=== PATIENT | male | born 1960 | race African-American/Black ===

== ENCOUNTER 2016-10-21 20:16 | Inpatient (IN) | payer MEDICARE, OTHER ==
[~2016-10-21] VITALS: Ht 154.9 cm; Wt 48.7 kg
[~2016-10-21 20:16] MED LIST: ALBU0.63 NEB; BUSP15TA PO; CRESTOR20 MG PO; ESCI10TA PO; FLUT1DIS3 IH; FOLI1TAB16 PO; GUAI473L15 PO; HALO5TAB PO; LANS30CA PO; METF850T2 PO; MULT1TAB52 PO; OLAN10TA9 PO; SUCR1TAB29 PO; TIOT18CA IH; VENTOLIN HFA18 GM INH
[2016-10-21] MEDS ORDERED: methylPREDNISolone SOD SUCC PF 125 MG/2 ML VIAL. IV ONE (20:45)
[2016-10-21] MEDS ORDERED: IPRATRPIUM/ALBUTEROL 0.5/2.5MG 3 ML NEBU. NEB ONE (20:45)
[2016-10-21 21:11] LABS: BASO # 0.1 x10^3/uL (0.0-0.2); BASO % 0 % (0-3); EOS % 0 % (0-3); HEMOGLOBIN 11.3 g/dL (13.0-17.5); LYMPH # 1.4 x10^3/uL (1.0-4.8); LYMPH % 8 % (24-48); MEAN CORPUSCULAR HEMOGLOBIN 29 pg (25-35); MEAN CORPUSCULAR HGB CONC 33 g/dL (31-37); MEAN CORPUSCULAR VOLUME 87 fL (79-100); MONO % 6 % (0-9); NEUT % 86 % (31-73); PLATELET COUNT 707 x10^3/uL (140-400); RED CELL DISTRIBUTION WIDTH 15.2 % (11.5-14.5); WHITE BLOOD COUNT 18.6 x10^3/uL (4.0-11.0)
[2016-10-21 21:12] LABS: CALCIUM 8.9 mg/dL (8.5-10.1); CREATININE 1.2 mg/dL (0.7-1.3); GFR 76.1; POTASSIUM 3.4 mmol/L (3.5-5.1)
[2016-10-21 21:18] LABS: ALBUMIN 2.4 g/dL (3.4-5.0); ALBUMIN/GLOBULIN RATIO 0.4 (1.0-1.7); TOTAL BILIRUBIN 0.7 mg/dL (0.2-1.0); TOTAL PROTEIN 8.2 g/dL (6.4-8.2)
[2016-10-21 21:19] LABS: OBC FLU VALID
[2016-10-21 21:36] LABS: PLT ESTIMATE INCREASED (ADEQUATE); TOXIC GRANULATION SLIGHT; TOXIC VACUOLATION SLIGHT
[2016-10-21] MEDS ORDERED: LEVOFLOXACIN PER PHARMACY MC PRN (21:45)
[2016-10-21] MEDS ORDERED: ONDANSETRON PF 4 MG/2 ML VIAL. IV PRN (22:00)
[2016-10-21] MEDS ORDERED: ACETAMINOPHEN 325 MG TABLET. PO PRN (22:00)
--- NOTE | 2016-10-21 22:04 | PHYS DOC ---
Past Medical History Past Medical History: Anemia, Anxiety, Depression, Diabetes-Type II, GERD, High Cholesterol, Hypothyroid, Other Additional Past Medical Histor: PSYCHOSIS Past Surgical History: No Surgical History Alcohol Use: None Drug Use: None Adult General Chief Complaint Chief Complaint: FLU SYMPTOM HPI HPI 56-year-old male with multiple medical problems including some psychiatric illnesses resents with 2-3 day history of coughing and congestion. He states over the last 2-3 days he is just not felt well. He states he's felt short of breath. He has not had any chest pain. He denies any hemoptysis. He states he has not been eating much recently. [] Review of Systems Review of Systems Constitutional: Denies fever or chills [] Eyes: Denies change in visual acuity, redness, or eye pain [] HENT: Denies nasal congestion or sore throat [] Respiratory: Per history of present illness [] Cardiovascular: No additional information not addressed in HPI [] GI: Denies abdominal pain, nausea, vomiting, bloody stools or diarrhea [] : Denies dysuria or hematuria [] Musculoskeletal: Denies back pain or joint pain [] Integument: Denies rash or skin lesions [] Neurologic: Denies headache, focal weakness or sensory changes [] Endocrine: Denies polyuria or polydipsia [] Current Medications Current Medications Current Medications Medications (Trade) Dose Ordered Sig/Dee Start Time Stop Time Status Last Admin Dose Admin Acetaminophen (Tylenol) 650 mg PRN Q4HRS PRN 10/21/16 22:00 10/22/16 21:59 Albuterol/ Ipratropium (Duoneb) 6 ml 1X ONCE 10/21/16 20:45 10/21/16 20:46 DC 10/21/16 21:04 6 ML Albuterol/ Ipratropium 3 ml 3 ml RTQID 10/22/16 08:00 10/23/16 07:59 Levofloxacin/ Dextrose (LEVAQUIN 750mg PREMIX) 150 ml @ 100 mls/hr 1X ONCE 10/21/16 22:00 10/21/16 23:29 Levofloxacin/ Dextrose (Levaquin Per Pharmacy) 1 each PRN DAILY PRN 10/21/16 21:45 UNV Methylprednisolone Sodium Succinate (Solu-Medrol 125mg Vial) 125 mg 1X ONCE 10/21/16 20:45 10/21/16 20:46 DC 10/21/16 20:58 125 MG Ondansetron HCl 4 mg 4 mg PRN Q8HRS PRN 10/21/16 22:00 10/22/16 21:59 Sodium Chloride (Iv Sodium Chloride 0.9% 1000ml Bag) 1,000 ml @ 150 mls/hr Q6H40M 10/21/16 22:00 10/22/16 21:59 Allergies Allergies Allergies Coded Allergies Type Severity Reaction Last Updated Verified No Known Drug Allergies 05/09/14 No Physical Exam Physical Exam Constitutional: Well developed, well nourished, no acute distress, non-toxic appearance. [] HENT: Normocephalic, atraumatic, bilateral external ears normal, oropharynx moist, no oral exudates, nose normal. [] Eyes: PERRLA, EOMI, conjunctiva normal, no discharge. [] Neck: Normal range of motion, no tenderness, supple, no stridor. [] Cardiovascular:Heart rate regular rhythm, no murmur [] Lungs & Thorax: Diffuse wheezing throughout both lungs no rales [] Abdomen: Bowel sounds normal, soft, no tenderness, no masses, no pulsatile masses. [] Skin: Warm, dry, no erythema, no rash. [] Back: No tenderness, no CVA tenderness. [] Extremities: No tenderness, no cyanosis, no clubbing, ROM intact, no edema. [] Neurologic: Alert and oriented X 3, normal motor function, normal sensory function, no focal deficits noted. [] Psychologic: Very unusual affect. [] Current Patient Data Vital Signs Vital Signs Date Time Temp Pulse Resp B/P Pulse Ox O2 Delivery O2 Flow Rate FiO2 10/21/16 21:16 105 20 117/66 98 Nasal Cannula 2 10/21/16 20:30 98.8 98.8 Lab Values Laboratory Tests Test 10/21/16 20:45 White Blood Count 18.6x10^3/uL (4.0-11.0) H Red Blood Count 3.90x10^6/uL (4.30-5.70) L Hemoglobin 11.3g/dL (13.0-17.5) L Hematocrit 34.0% (39.0-53.0) L Mean Corpuscular Volume 87fL (79-100) Mean Corpuscular Hemoglobin 29pg (25-35) Mean Corpuscular Hemoglobin Concent 33g/dL (31-37) Red Cell Distribution Width 15.2% (11.5-14.5) H Platelet Count 707x10^3/uL (140-400) H Neutrophils (%) (Auto) 86% (31-73) H Lymphocytes (%) (Auto) 8% (24-48) L Monocytes (%) (Auto) 6% (0-9) Eosinophils (%) (Auto) 0% (0-3) Basophils (%) (Auto) 0% (0-3) Neutrophils # (Auto) 16.1x10^3uL (1.8-7.7) H Lymphocytes # (Auto) 1.4x10^3/uL (1.0-4.8) Monocytes # (Auto) 1.1x10^3/uL (0.0-1.1) Eosinophils # (Auto) 0.0x10^3/uL (0.0-0.7) Basophils # (Auto) 0.1x10^3/uL (0.0-0.2) Segmented Neutrophils % 87% (35-66) H Band Neutrophils % 2% (0-9) Lymphocytes % 7% (24-48) L Monocytes % 4% (0-10) Toxic Granulation Slight Toxic Vacuolation Slight Platelet Estimate Increased (ADEQUATE) Sodium Level 135mmol/L (136-145) L Potassium Level 3.4mmol/L (3.5-5.1) L Chloride Level 97mmol/L (98-107) L Carbon Dioxide Level 28mmol/L (21-32) Anion Gap 10 (6-14) Blood Urea Nitrogen 15mg/dL (8-26) Creatinine 1.2mg/dL (0.7-1.3) Estimated GFR (Cockcroft-Gault) 76.1 BUN/Creatinine Ratio 13 (6-20) Glucose Level 120mg/dL (70-99) H Calcium Level 8.9mg/dL (8.5-10.1) Total Bilirubin 0.7mg/dL (0.2-1.0) Aspartate Amino Transferase (AST) 35U/L (15-37) Alanine Aminotransferase (ALT) 46U/L (16-63) Alkaline Phosphatase 264U/L (46-116) H Troponin I Quantitative < 0.017ng/mL (0.000-0.055) FY-Lyy-Z-Type Natriuretic Peptide 120pg/mL (0-124) Total Protein 8.2g/dL (6.4-8.2) Albumin 2.4g/dL (3.4-5.0) L Albumin/Globulin Ratio 0.4 (1.0-1.7) L Influenza Type A Antigen Negative (NEGATIVE) Influenza Type B Antigen Negative (NEGATIVE) Laboratory Tests 10/21/16 20:45 Laboratory Tests 10/21/16 20:45 EKG EKG [EKG: Normal sinus rhythm rate of [address]-T changes] Radiology/Procedures Radiology/Procedures [] Impressions: Chest x-ray: Scattered infiltrates throughout both lungs Course & Med Decision Making Course & Med Decision Making Pertinent Labs and Imaging studies reviewed. (See chart for details) [ED course: Evaluation reveals a 56-year-old male who appears older than his stated age with scattered wheezes throughout both lungs. His chest x-ray is not completely normal and potentially represent pneumonia. Patient was given IV Levaquin. He was given 2 DuoNeb nebs and 125 Solu-Medrol IV during his stay in the department which did help alleviate his symptoms. Patient was satting 95% on 2 L nasal cannula. I spoke with Dr. Shelly Samuel who agreed to accept patient for admission.] Dragon Disclaimer Dragon Disclaimer This electronic medical record was generated, in whole or in part, using a voice recognition dictation system. Departure Departure Impression: Primary Impression: COPD exacerbation Disposition: 09 ADMITTED INPATIENT Admitting Physician: Pam Wilde Condition: STABLE Referrals: Elliot CALLOWAY MD (PCP) YADIRA BROWNING DO Oct 21, 2016 22:04
[2016-10-21 22:50] VITALS: BP 132/78
[2016-10-21 22:51] VITALS: BP 132/78
[2016-10-21] MEDS: IV NORMAL SALINE 1000ML BAG 1,000 ML IV SCH (23:02)
[2016-10-22] MEDS ORDERED: INFLUENZA VAX SCREEN BY RX. MC PRN (00:45)
[2016-10-22] MEDS ORDERED: METH5TAB6 PO (00:50)
[2016-10-22] MEDS ORDERED: EZET10TA3 PO (00:50)
[2016-10-22] MEDS: IV NORMAL SALINE 1000ML BAG 1,000 ML IV SCH ×3 (04:40→16:40)
--- NOTE | 2016-10-22 06:12 | EKG ---
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
[2016-10-22 07:00] VITALS: BP 110/69
--- NOTE | 2016-10-22 07:25 | RAD ---
Indication shortness of breath. A single view of the chest was obtained and is compared to an exam 11/23/2007. Relative to the previous exam there is interstitial prominence in the lungs. It is uncertain whether this is chronic in nature reflecting fibrotic changes or is outside sales account representative of an infectious process such as interstitial pneumonitis or mild interstitial edema. A focal consolidated pneumonia is not seen. Heart size is normal. There is no pleural fluid or pneumothorax. IMPRESSION: Mild diffuse interstitial prominence relative to the previous exam. See above discussion. No focal consolidated pneumonia seen
[2016-10-22] MEDS ORDERED: IPRATRPIUM/ALBUTEROL 0.5/2.5MG 3 ML NEBU. NEB SCH (08:00)
[2016-10-22] MEDS ORDERED: ALBUTEROL SULFATE 2.5 MG/3 ML NEBU. NEB PRN (08:15)
[2016-10-22] MEDS: busPIRone 5 MG TABLET. PO SCH ×3 (08:46→20:26)
[2016-10-22] MEDS: OLANZAPINE 5 MG TABLET. PO SCH (08:46)
[2016-10-22] MEDS: FOLIC ACID 1 MG TABLET PO SCH (08:47)
[2016-10-22] MEDS: EZETIMIBE 10 MG TABLET PO SCH (08:47)
[2016-10-22] MEDS: PANTOPRAZOLE 40 MG TABLET. PO SCH (08:47)
[2016-10-22] MEDS: HALOPERIDOL 5 MG TABLET PO SCH ×3 (08:47→20:26)
[2016-10-22] MEDS: ESCITALOPRAM 10 MG TABLET. PO SCH (08:47)
[2016-10-22] MEDS: METHIMAZOLE 10 MG TABLET PO SCH (08:50)
[2016-10-22] MEDS ORDERED: NON FORMULARY ITEM (Tiotropium Bromide (Spiriva) 2 INH) IH SCH (09:00)
[2016-10-22] MEDS ORDERED: PREDNISONE 20 MG TABLET PO SCH (09:00)
[2016-10-22] MEDS ORDERED: FLU VACC QUAD 2016-17 (36MOS+)/PF 0.5 ML SYRINGE. VAX IM ONE (09:00)
[2016-10-22] MEDS: SUCRALFATE 1 GM TABLET. PO SCH ×3 (10:51→20:26)
[2016-10-22 11:00] VITALS: BP 123/70
[2016-10-22] MEDS: IPRATRPIUM/ALBUTEROL 0.5/2.5MG 3 ML NEBU. NEB SCH ×3 (11:27→20:13)
[2016-10-22 15:00] VITALS: BP 111/62
--- NOTE | 2016-10-22 15:57 | PDOC1 ---
History and Physical Date of Admission Date of Admission DATE: 10/21/16 Identification/Chief Complaint Chief Complaint Difficulties breathing Source Source: Patient History of Present Illness History of Present Illness Pt says that he has been ill for the past week or so with productive cough with green sputum. He has had increased difficulty breathing and wheezing. Past Medical History Cardiovascular: HTN, Hyperlipidemia Pulmonary: Asthma, COPD GI: GERD Heme/Onc: No pertinent hx Hepatobiliary: Other (Elevated Liver enzymes 2/2 Etoh use) Psych: Depression, Schizophrenia Rheumatologic: No pertinent hx Infectious disease: No pertinent hx ENT: No pertinent hx Renal/: No pertinent hx Endocrine: Diabetes, Hyperthyroidism Dermatology: No pertinent hx Past Surgical History Past Surgical History: No pertinent history Family History Family History: Diabetes Social History Smoke: 1 pack per day ALCOHOL: occassional Drugs: None Current Problem List Problem List Problems Medical Problems: (1) COPD exacerbation Status: Acute Problems: Current Medications Current Medications Current Medications Albuterol/ Ipratropium (Duoneb) 6 ml 1X ONCE NEB Last administered on 21:04; Start 10/21/16 at 20:45; Stop 10/21/16 at 20:46; Status DC Methylprednisolone Sodium Succinate (Solu-Medrol 125mg Vial) 125 mg 1X ONCE IV Last administered on 10/21/16 20:58; Start 10/21/16 at 20:45; Stop 10/21/16 at 20:46; Status DC Levofloxacin/ Dextrose (Levaquin Per Pharmacy) 1 each PRN DAILY PRN MC SEE COMMENTS; Start 10/21/16 at 21:45 Ondansetron HCl 4 mg 4 mg PRN Q8HRS PRN IV NAUSEA/VOMITING; Start 10/21/16 at 22:00; Stop 10/22/16 at 21:59 Sodium Chloride (Iv Sodium Chloride 0.9% 1000ml Bag) 1,000 ml @ 150 mls/hr Q6H40M IV Last administered on 10/22/16 04:40; Start 10/21/16 at 22:00; Stop at 21:59 Acetaminophen (Tylenol) 650 mg PRN Q4HRS PRN PO FEVER; Start 10/21/16 at 22:00 ; Stop 10/22/16 at 21:59 Albuterol/ Ipratropium 3 ml 3 ml RTQID NEB Last administered on 10/22/16 07:38 ; Start 10/22/16 at 08:00; Stop 10/22/16 at 08:22; Status DC Levofloxacin/ Dextrose 150 ml @ 100 mls/hr 1X ONCE IV ; Start 10/21/16 at 22: 00; Stop 10/21/16 at 23:29; Status Cancel Levofloxacin/ Dextrose 100 ml @ 100 mls/hr 1X ONCE IV Last administered on 22:21; Start 10/21/16 at 22:30; Stop 10/21/16 at 23:29; Status DC Levofloxacin/ Dextrose (LEVAQUIN 250mg PREMIX) 50 ml @ 50 mls/hr Q24H IV ; Start 10/22/16 at 21:00 Influenza Virus Vaccine Quadrival (Fluarix Quad [id number] Syringe) 0.5 ml ONCE ONCE VAX IM Last administered on 10/22/16 08:52; Start 10/22/16 at 09:00; Stop 10/22/16 at 09:01; Status DC Info (Do NOT chart on this placeholder) 1 each PRN 1X PRN MC SEE COMMENTS; Start 10/22/16 at 00:45; Status Cancel Prednisone (Prednisone) 50 mg DAILY PO Last administered on 10/22/16 08:46; Start 10/22/16 at 09:00 Escitalopram Oxalate (Lexapro) 10 mg DAILY PO Last administered on 10/22/16 08: 47; Start 10/22/16 at 09:00 EZETIMIBE (Zetia) 10 mg DAILY PO Last administered on 10/22/16 08:47; Start 10/22/16 at 09:00 Folic Acid (Folic Acid) 1 mg DAILY PO Last administered on 10/22/16 08:47; Start 10/22/16 at 09:00 Haloperidol (Haldol) 5 mg TID PO Last administered on 10/22/16 13:35; Start 10/22/16 at 09:00 Sucralfate (Carafate) 1 gm QIDACHS PO Last administered on 10/22/16 10:51; Start 10/22/16 at 11:30 Non-Formulary Medication 2 inh DAILY IH ; Start 10/22/16 at 09:00; Status UNV Albuterol Sulfate (Ventolin Neb Soln) 2.5 mg PRN Q4HRS PRN NEB SHORTNESS OF BREATH; Start 10/22/16 at 08:15 Buspirone HCl (Buspar) 15 mg TID PO Last administered on 10/22/16 13:35; Start 10/22/16 at 09:00 Pantoprazole Sodium (Protonix) 40 mg DAILYAC PO Last administered on 10/22/16 08:47; Start 10/22/16 at 09:00 Methimazole (Tapazole) 5 mg DAILY PO Last administered on 10/22/16 08:50; Start 10/22/16 at 09:00 Olanzapine (Zyprexa) 15 mg DAILY PO Last administered on 10/22/16 08:46; Start 10/22/16 at 09:00 Atorvastatin Calcium (Lipitor) 10 mg QHS PO ; Start 10/22/16 at 21:00 Albuterol/ Ipratropium (Duoneb) 3 ml RTQID NEB Last administered on 10/22/16 14 :55; Start 10/22/16 at 12:00 Active Scripts Active Reported Methimazole 5 Mg Tablet 5 Mg PO Zetia (Ezetimibe) 10 Mg Tablet 1 Tab PO DAILY Albuterol Sulfate Neb Soln (Albuterol Sulfate) 0.63 Mg/3 Ml Vial.neb 0.083 Mg NEB Ventolin Hfa Inhaler (Albuterol Sulfate) 18 Gm Hfa.aer.ad 2 Puff INH QID Guaifenesin Ac Cough Syrup (Guaifenesin/Codeine Phosphate) 473 Ml Liquid 5 Ml PO PRN Q6HRS PRN Carafate (Sucralfate) 1 Gm Tablet 1 Gm PO QIDACHS Spiriva (Tiotropium [place]) 18 Mcg Cap.w.dev 2 Inh IH DAILY Olanzapine 10 Mg Tablet 15 Mg PO DAILY Multivitamins (Multivitamin) 1 Each Tablet 1 Each PO DAILY Metformin Hcl 850 Mg Tablet 850 Mg PO BID Lansoprazole 30 Mg Capsule.dr 30 Mg PO BID Haloperidol 5 Mg Tablet 5 Mg PO TID Folic Acid 1 Mg Tablet 1 Mg PO DAILY Escitalopram Oxalate 10 Mg Tablet 10 Mg PO DAILY Crestor (Rosuvastatin Calcium) 20 Mg Tablet 20 Mg PO HS Buspirone Hcl 15 Mg Tablet 15 Mg PO TID Advair 250-50 Diskus (Fluticasone/Salmeterol) 1 Each Disk.w.dev 1 Inh IH BID Allergies Allergies: Coded Allergies: No Known Drug Allergies (Unverified , 05/09/14) ROS General: No: Chills, Night Sweats PSYCHOLOGICAL ROS: No: Anxiety, Depression Eyes: No Decreased vision, No Eye Pain HEENT: No: Nasal congestion, Sore Throat ALLERGY AND IMMUNOLOGY: YES: Post Nasal Drip, No: Hives Hematological and Lymphatic: No: Bleeding Problems, Blood Clots Respiratory: YES: Cough, Shortness of breath, Sputum Changes, Wheezing Cardiovascular: No Chest Pain, No Edema, No Palpitations Gastrointestinal: No Abdominal Pain, No Constipation, No Diarrhea, No Nausea, No Vomiting Genitourinary: No Dysuria, No Urgency Musculoskeletal: No Joint Pain, No Muscle Pain Neurological: No Behavorial Changes, No Numbness/Tingling Skin: No Rash, No Skin Lesion Changes Physical Exam General: Alert, Oriented X3, Cooperative, No acute distress HEENT: Atraumatic, PERRLA, EOMI, Mucous membr. moist/pink Lungs: Normal air movement, Other (end expiratory wheezes throughout) Heart: RRR, no rubs, no gallops, no murmurs Abdomen: Normal bowel sounds, Soft, No tenderness, No hepatosplenomegaly Extremities: No clubbing, No cyanosis, No edema Skin: No rashes, No significant lesion Neuro: Normal speech, Cranial nerves 3-12 NL Psych/Mental Status: Mental status NL, Mood NL Vitals Vitals Vital Signs Date Time Temp Pulse Resp B/P Pulse Ox O2 Delivery O2 Flow Rate FiO2 10/22/16 15:00 97.6 105 19 111/62 98 Room Air 97.6 10/22/16 07:00 2.0 Labs Labs Laboratory Tests Test 10/21/16 20:45 10/22/16 03:38 10/22/16 07:38 10/22/16 08:55 White Blood Count 18.6x10^3/uL (4.0-11.0) Red Blood Count 3.90x10^6/uL (4.30-5.70) Hemoglobin 11.3g/dL (13.0-17.5) Hematocrit 34.0% (39.0-53.0) Mean Corpuscular Volume 87fL (79-100) Mean Corpuscular Hemoglobin 29pg (25-35) Mean Corpuscular Hemoglobin Concent 33g/dL (31-37) Red Cell Distribution Width 15.2% (11.5-14.5) Platelet Count 707x10^3/uL (140-400) Neutrophils (%) (Auto) 86% (31-73) Lymphocytes (%) (Auto) 8% (24-48) Monocytes (%) (Auto) 6% (0-9) Eosinophils (%) (Auto) 0% (0-3) Basophils (%) (Auto) 0% (0-3) Neutrophils # (Auto) 16.1x10^3uL (1.8-7.7) Lymphocytes # (Auto) 1.4x10^3/uL (1.0-4.8) Monocytes # (Auto) 1.1x10^3/uL (0.0-1.1) Eosinophils # (Auto) 0.0x10^3/uL (0.0-0.7) Basophils # (Auto) 0.1x10^3/uL (0.0-0.2) Segmented Neutrophils % 87% (35-66) Band Neutrophils % 2% (0-9) Lymphocytes % 7% (24-48) Monocytes % 4% (0-10) Toxic Granulation Slight Toxic Vacuolation Slight Platelet Estimate Increased (ADEQUATE) Sodium Level 135mmol/L (136-145) Potassium Level 3.4mmol/L (3.5-5.1) Chloride Level 97mmol/L (98-107) Carbon Dioxide Level 28mmol/L (21-32) Anion Gap 10 (6-14) Blood Urea Nitrogen 15mg/dL (8-26) Creatinine 1.2mg/dL (0.7-1.3) Estimated GFR (Cockcroft-Gault) 76.1 BUN/Creatinine Ratio 13 (6-20) Glucose Level 120mg/dL (70-99) Calcium Level 8.9mg/dL (8.5-10.1) Total Bilirubin 0.7mg/dL (0.2-1.0) Aspartate Amino Transf (AST/SGOT) 35U/L (15-37) Alanine Aminotransferase (ALT/SGPT) 46U/L (16-63) Alkaline Phosphatase 264U/L (46-116) Troponin I Quantitative < 0.017ng/mL (0.000-0.055) < 0.017ng/mL (0.000-0.055) < 0.017ng/mL (0.000-0.055) QW-Uyh-N-Type Natriuretic Peptide 120pg/mL (0-124) Total Protein 8.2g/dL (6.4-8.2) Albumin 2.4g/dL (3.4-5.0) Albumin/Globulin Ratio 0.4 (1.0-1.7) Influenza Type A Antigen Negative (NEGATIVE) Influenza Type B Antigen Negative (NEGATIVE) Glucose (Fingerstick) 141mg/dL (70-99) Laboratory Tests Test 10/21/16 20:45 10/22/16 03:38 10/22/16 07:38 10/22/16 08:55 White Blood Count 18.6x10^3/uL (4.0-11.0) Red Blood Count 3.90x10^6/uL (4.30-5.70) Hemoglobin 11.3g/dL (13.0-17.5) Hematocrit 34.0% (39.0-53.0) Mean Corpuscular Volume 87fL (79-100) Mean Corpuscular Hemoglobin 29pg (25-35) Mean Corpuscular Hemoglobin Concent 33g/dL (31-37) Red Cell Distribution Width 15.2% (11.5-14.5) Platelet Count 707x10^3/uL (140-400) Neutrophils (%) (Auto) 86% (31-73) Lymphocytes (%) (Auto) 8% (24-48) Monocytes (%) (Auto) 6% (0-9) Eosinophils (%) (Auto) 0% (0-3) Basophils (%) (Auto) 0% (0-3) Neutrophils # (Auto) 16.1x10^3uL (1.8-7.7) Lymphocytes # (Auto) 1.4x10^3/uL (1.0-4.8) Monocytes # (Auto) 1.1x10^3/uL (0.0-1.1) Eosinophils # (Auto) 0.0x10^3/uL (0.0-0.7) Basophils # (Auto) 0.1x10^3/uL (0.0-0.2) Segmented Neutrophils % 87% (35-66) Band Neutrophils % 2% (0-9) Lymphocytes % 7% (24-48) Monocytes % 4% (0-10) Toxic Granulation Slight Toxic Vacuolation Slight Platelet Estimate Increased (ADEQUATE) Sodium Level 135mmol/L (136-145) Potassium Level 3.4mmol/L (3.5-5.1) Chloride Level 97mmol/L (98-107) Carbon Dioxide Level 28mmol/L (21-32) Anion Gap 10 (6-14) Blood Urea Nitrogen 15mg/dL (8-26) Creatinine 1.2mg/dL (0.7-1.3) Estimated GFR (Cockcroft-Gault) 76.1 BUN/Creatinine Ratio 13 (6-20) Glucose Level 120mg/dL (70-99) Calcium Level 8.9mg/dL (8.5-10.1) Total Bilirubin 0.7mg/dL (0.2-1.0) Aspartate Amino Transf (AST/SGOT) 35U/L (15-37) Alanine Aminotransferase (ALT/SGPT) 46U/L (16-63) Alkaline Phosphatase 264U/L (46-116) Troponin I Quantitative < 0.017ng/mL (0.000-0.055) < 0.017ng/mL (0.000-0.055) < 0.017ng/mL (0.000-0.055) OK-Ynd-E-Type Natriuretic Peptide 120pg/mL (0-124) Total Protein 8.2g/dL (6.4-8.2) Albumin 2.4g/dL (3.4-5.0) Albumin/Globulin Ratio 0.4 (1.0-1.7) Influenza Type A Antigen Negative (NEGATIVE) Influenza Type B Antigen Negative (NEGATIVE) Glucose (Fingerstick) 141mg/dL (70-99) VTE Prophylaxis Ordered VTE Prophylaxis Devices: Yes VTE Pharmacological Prophylaxi: No Assessment/Plan Assessment/Plan Pt is a 56yo AAM admitted for COPD exacerbation 1)COPD Exacerbation- pt started on Prednisone and Levaquin. Pt's WBC elevated at 18.6. 2)Hx of DM2- pt is not on any diabetes medications. Fasting BS this morning was 120. HbA1C pending 3)Depression/Schizophrenia- pt continued on Escitalopram 10mg, Haldol 5mg TID, Olanzapine 15mg qday and Buspirone 15mg TID 4)Hyperthyroidism- TSH pending. Pt continued on Methimazole 5mg 5)Hx Hudson's - pt transitioned to Pantoprazole 40mg and continued on Sucralfate 1g 6)HLD- pt transitioned to Atorvastatin 10mg and continued on Zetia 7)Anemia- mild. No active bleeding. CTM 8)Hyponatremia- mild. CTM 9)PEM- severe JOEL HOLLIS MD Oct 22, 2016 15:56
--- NOTE | 2016-10-22 16:19 | PDOC ---
PULMONARY PROGRESS NOTES Vitals Vital Signs Date Time Temp Pulse Resp B/P Pulse Ox O2 Delivery O2 Flow Rate FiO2 10/22/16 15:00 97.6 105 19 111/62 98 Room Air 97.6 10/22/16 07:00 2.0 Labs Laboratory Tests Test 10/21/16 20:45 10/22/16 03:38 10/22/16 07:38 10/22/16 08:55 White Blood Count 18.6x10^3/uL (4.0-11.0) Red Blood Count 3.90x10^6/uL (4.30-5.70) Hemoglobin 11.3g/dL (13.0-17.5) Hematocrit 34.0% (39.0-53.0) Mean Corpuscular Volume 87fL (79-100) Mean Corpuscular Hemoglobin 29pg (25-35) Mean Corpuscular Hemoglobin Concent 33g/dL (31-37) Red Cell Distribution Width 15.2% (11.5-14.5) Platelet Count 707x10^3/uL (140-400) Neutrophils (%) (Auto) 86% (31-73) Lymphocytes (%) (Auto) 8% (24-48) Monocytes (%) (Auto) 6% (0-9) Eosinophils (%) (Auto) 0% (0-3) Basophils (%) (Auto) 0% (0-3) Neutrophils # (Auto) 16.1x10^3uL (1.8-7.7) Lymphocytes # (Auto) 1.4x10^3/uL (1.0-4.8) Monocytes # (Auto) 1.1x10^3/uL (0.0-1.1) Eosinophils # (Auto) 0.0x10^3/uL (0.0-0.7) Basophils # (Auto) 0.1x10^3/uL (0.0-0.2) Segmented Neutrophils % 87% (35-66) Band Neutrophils % 2% (0-9) Lymphocytes % 7% (24-48) Monocytes % 4% (0-10) Toxic Granulation Slight Toxic Vacuolation Slight Platelet Estimate Increased (ADEQUATE) Sodium Level 135mmol/L (136-145) Potassium Level 3.4mmol/L (3.5-5.1) Chloride Level 97mmol/L (98-107) Carbon Dioxide Level 28mmol/L (21-32) Anion Gap 10 (6-14) Blood Urea Nitrogen 15mg/dL (8-26) Creatinine 1.2mg/dL (0.7-1.3) Estimated GFR (Cockcroft-Gault) 76.1 BUN/Creatinine Ratio 13 (6-20) Glucose Level 120mg/dL (70-99) Calcium Level 8.9mg/dL (8.5-10.1) Total Bilirubin 0.7mg/dL (0.2-1.0) Aspartate Amino Transf (AST/SGOT) 35U/L (15-37) Alanine Aminotransferase (ALT/SGPT) 46U/L (16-63) Alkaline Phosphatase 264U/L (46-116) Troponin I Quantitative < 0.017ng/mL (0.000-0.055) < 0.017ng/mL (0.000-0.055) < 0.017ng/mL (0.000-0.055) HS-Qqf-F-Type Natriuretic Peptide 120pg/mL (0-124) Total Protein 8.2g/dL (6.4-8.2) Albumin 2.4g/dL (3.4-5.0) Albumin/Globulin Ratio 0.4 (1.0-1.7) Influenza Type A Antigen Negative (NEGATIVE) Influenza Type B Antigen Negative (NEGATIVE) Glucose (Fingerstick) 141mg/dL (70-99) Laboratory Tests Test 10/21/16 20:45 10/22/16 03:38 10/22/16 07:38 10/22/16 08:55 White Blood Count 18.6x10^3/uL (4.0-11.0) Red Blood Count 3.90x10^6/uL (4.30-5.70) Hemoglobin 11.3g/dL (13.0-17.5) Hematocrit 34.0% (39.0-53.0) Mean Corpuscular Volume 87fL (79-100) Mean Corpuscular Hemoglobin 29pg (25-35) Mean Corpuscular Hemoglobin Concent 33g/dL (31-37) Red Cell Distribution Width 15.2% (11.5-14.5) Platelet Count 707x10^3/uL (140-400) Neutrophils (%) (Auto) 86% (31-73) Lymphocytes (%) (Auto) 8% (24-48) Monocytes (%) (Auto) 6% (0-9) Eosinophils (%) (Auto) 0% (0-3) Basophils (%) (Auto) 0% (0-3) Neutrophils # (Auto) 16.1x10^3uL (1.8-7.7) Lymphocytes # (Auto) 1.4x10^3/uL (1.0-4.8) Monocytes # (Auto) 1.1x10^3/uL (0.0-1.1) Eosinophils # (Auto) 0.0x10^3/uL (0.0-0.7) Basophils # (Auto) 0.1x10^3/uL (0.0-0.2) Segmented Neutrophils % 87% (35-66) Band Neutrophils % 2% (0-9) Lymphocytes % 7% (24-48) Monocytes % 4% (0-10) Toxic Granulation Slight Toxic Vacuolation Slight Platelet Estimate Increased (ADEQUATE) Sodium Level 135mmol/L (136-145) Potassium Level 3.4mmol/L (3.5-5.1) Chloride Level 97mmol/L (98-107) Carbon Dioxide Level 28mmol/L (21-32) Anion Gap 10 (6-14) Blood Urea Nitrogen 15mg/dL (8-26) Creatinine 1.2mg/dL (0.7-1.3) Estimated GFR (Cockcroft-Gault) 76.1 BUN/Creatinine Ratio 13 (6-20) Glucose Level 120mg/dL (70-99) Calcium Level 8.9mg/dL (8.5-10.1) Total Bilirubin 0.7mg/dL (0.2-1.0) Aspartate Amino Transf (AST/SGOT) 35U/L (15-37) Alanine Aminotransferase (ALT/SGPT) 46U/L (16-63) Alkaline Phosphatase 264U/L (46-116) Troponin I Quantitative < 0.017ng/mL (0.000-0.055) < 0.017ng/mL (0.000-0.055) < 0.017ng/mL (0.000-0.055) GQ-Vzl-N-Type Natriuretic Peptide 120pg/mL (0-124) Total Protein 8.2g/dL (6.4-8.2) Albumin 2.4g/dL (3.4-5.0) Albumin/Globulin Ratio 0.4 (1.0-1.7) Influenza Type A Antigen Negative (NEGATIVE) Influenza Type B Antigen Negative (NEGATIVE) Glucose (Fingerstick) 141mg/dL (70-99) Medications Active Scripts Medications Dose Route/Sig Days Date Category Methimazole 5 Mg Tablet 5 Mg PO 10/22/16 Reported Zetia (Ezetimibe) 10 Mg Tablet 1 Tab PO DAILY 10/22/16 Reported Albuterol Sulfate Neb Soln (Albuterol Sulfate) 0.63 Mg/3 Ml Vial.neb 0.083 Mg NEB 05/09/14 Reported Ventolin Hfa Inhaler (Albuterol Sulfate) 18 Gm Hfa.aer.ad 2 Puff INH QID 05/09/14 Reported Guaifenesin Ac Cough Syrup (Guaifenesin/Codeine Phosphate) 473 Ml Liquid 5 Ml PO PRN Q6HRS PRN 05/09/14 Reported Carafate (Sucralfate) 1 Gm Tablet 1 Gm PO QIDACHS 05/09/14 Reported Spiriva (Tiotropium [place]) 18 Mcg Cap.w.dev 2 Inh IH DAILY 05/09/14 Reported Olanzapine 10 Mg Tablet 15 Mg PO DAILY 05/09/14 Reported Multivitamins (Multivitamin) 1 Each Tablet 1 Each PO DAILY 05/09/14 Reported Metformin Hcl 850 Mg Tablet 850 Mg PO BID 05/09/14 Reported Lansoprazole 30 Mg Capsule.dr 30 Mg PO BID 05/09/14 Reported Haloperidol 5 Mg Tablet 5 Mg PO TID 05/09/14 Reported Folic Acid 1 Mg Tablet 1 Mg PO DAILY 05/09/14 Reported Escitalopram Oxalate 10 Mg Tablet 10 Mg PO DAILY 05/09/14 Reported Crestor (Rosuvastatin Calcium) 20 Mg Tablet 20 Mg PO HS 05/09/14 Reported Buspirone Hcl 15 Mg Tablet 15 Mg PO TID 05/09/14 Reported Advair 250-50 Diskus (Fluticasone/Salmeterol) 1 Each Disk.w.dev 1 Inh IH BID 05/09/14 Reported Impression . FULL NOTE DICTATED SEE ORDERS AGREE WITH CURRENT RX FOR AECOPD POSSIBLE VIRAL PNEUMONIA VS ATYPICAL PNEUMONIA (MYCOPLASMA) CATARINO PAYNE MD Oct 22, 2016 16:19
[2016-10-22 19:00] VITALS: BP 108/62
[2016-10-22] MEDS: ATORVASTATIN CALCIUM 10 MG TABLET. PO SCH (20:26)
[2016-10-22 23:00] VITALS: BP 108/59
[2016-10-23 03:12] VITALS: BP 124/70
[2016-10-23 04:17] LABS: BASO % 0 % (0-3); EOS % 0 % (0-3); HEMATOCRIT 30.3 % (39.0-53.0); HEMOGLOBIN 10.2 g/dL (13.0-17.5); LYMPH # 2.1 x10^3/uL (1.0-4.8); LYMPH % 12 % (24-48); MEAN CORPUSCULAR HEMOGLOBIN 29 pg (25-35); MEAN CORPUSCULAR HGB CONC 34 g/dL (31-37); MEAN CORPUSCULAR VOLUME 87 fL (79-100); MONO % 6 % (0-9); NEUT % 82 % (31-73); PLATELET COUNT 795 x10^3/uL (140-400); RED BLOOD COUNT 3.49 x10^6/uL (4.30-5.70); RED CELL DISTRIBUTION WIDTH 15.1 % (11.5-14.5); WHITE BLOOD COUNT 17.9 x10^3/uL (4.0-11.0)
[2016-10-23 04:38] LABS: CALCIUM 8.5 mg/dL (8.5-10.1); CREATININE 1.1 mg/dL (0.7-1.3); GFR 84.1; POTASSIUM 3.2 mmol/L (3.5-5.1)
[2016-10-23 07:00] VITALS: BP 109/70
--- NOTE | 2016-10-23 07:05 | PDOC ---
SUBJECTIVE Subjective Pt states that he is feeling better and would like to go home. Pt still having signficant wheezing; encouraged pt to stay at least 1 more day. OBJECTIVE Vital Signs Vital Signs Date Time Temp Pulse Resp B/P Pulse Ox O2 Delivery O2 Flow Rate FiO2 10/23/16 03:12 98.0 95 20 124/70 91 Room Air 98.0 10/22/16 23:00 98.1 108 20 108/59 93 Room Air 98.1 10/22/16 20:13 95 Room Air 10/22/16 20:00 Room Air 2.0 10/22/16 19:00 98.2 90 20 108/62 91 Room Air 98.2 10/22/16 15:00 97.6 105 19 111/62 98 Room Air 97.6 10/22/16 14:55 Room Air 10/22/16 11:27 Room Air 10/22/16 11:00 98.1 114 19 123/70 99 Room Air 98.1 10/22/16 08:00 Room Air 10/22/16 07:38 100 Room Air I & O Intake and Output 10/23/16 07:00 Intake Total 2860 ml Balance 2860 ml Intake Oral 1810 ml IV Total 1050 ml # Voids 7 # Bowel Movements 2 PHYSICAL EXAM Physical Exam General: Alert, Oriented X3, Cooperative, No acute distress HEENT: Atraumatic, PERRLA, EOMI, Mucous membr. moist/pink Lungs: Normal air movement, inspiratory and expiratory wheezing throughout Heart: RRR, no rubs, no gallops, no murmurs Abdomen: Normal bowel sounds, Soft, No tenderness, No hepatosplenomegaly Extremities: No clubbing, No cyanosis, No edema Skin: No rashes, No significant lesion Neuro: Normal speech, Cranial nerves 3-12 NL Psych/Mental Status: Mental status NL, Mood NL ASSESSMENT/PLAN Assessment/Plan Pt is a 56yo AAM admitted for COPD exacerbation 1)COPD Exacerbation- pt started on Prednisone and Levaquin. Pt's WBC elevated at 18.6, mildly decreased this morning. Pulmonary following. 2)Hx of DM2- pt is not on any diabetes medications. Fasting BS this morning was 120. HbA1C pending 3)Depression/Schizophrenia- pt continued on Escitalopram 10mg, Haldol 5mg TID, Olanzapine 15mg qday and Buspirone 15mg TID 4)Hyperthyroidism- TSH pending. Pt continued on Methimazole 5mg 5)Hx Hudson's - pt transitioned to Pantoprazole 40mg and continued on Sucralfate 1g 6)HLD- pt transitioned to Atorvastatin 10mg and continued on Zetia 7)Anemia- mild. No active bleeding. CTM 8)Hyponatremia- mild, resolved 9)PEM- severe 10Hypokalemia- will replace Problems: COMMENT Lab Laboratory Tests Test 10/22/16 07:38 10/22/16 08:55 10/23/16 03:55 Glucose (Fingerstick) 141mg/dL (70-99) Troponin I Quantitative < 0.017ng/mL (0.000-0.055) White Blood Count 17.9x10^3/uL (4.0-11.0) Red Blood Count 3.49x10^6/uL (4.30-5.70) Hemoglobin 10.2g/dL (13.0-17.5) Hematocrit 30.3% (39.0-53.0) Mean Corpuscular Volume 87fL (79-100) Mean Corpuscular Hemoglobin 29pg (25-35) Mean Corpuscular Hemoglobin Concent 34g/dL (31-37) Red Cell Distribution Width 15.1% (11.5-14.5) Platelet Count 795x10^3/uL (140-400) Neutrophils (%) (Auto) 82% (31-73) Lymphocytes (%) (Auto) 12% (24-48) Monocytes (%) (Auto) 6% (0-9) Eosinophils (%) (Auto) 0% (0-3) Basophils (%) (Auto) 0% (0-3) Neutrophils # (Auto) 14.6x10^3uL (1.8-7.7) Lymphocytes # (Auto) 2.1x10^3/uL (1.0-4.8) Monocytes # (Auto) 1.1x10^3/uL (0.0-1.1) Eosinophils # (Auto) 0.0x10^3/uL (0.0-0.7) Basophils # (Auto) 0.0x10^3/uL (0.0-0.2) Sodium Level 141mmol/L (136-145) Potassium Level 3.2mmol/L (3.5-5.1) Chloride Level 106mmol/L (98-107) Carbon Dioxide Level 25mmol/L (21-32) Anion Gap 10 (6-14) Blood Urea Nitrogen 16mg/dL (8-26) Creatinine 1.1mg/dL (0.7-1.3) Estimated GFR (Cockcroft-Gault) 84.1 Glucose Level 131mg/dL (70-99) Calcium Level 8.5mg/dL (8.5-10.1) JOEL HOLLIS MD Oct 23, 2016 07:05
[2016-10-23] MEDS ORDERED: POTASSIUM CHLORIDE 20 MEQ TABLET.ER. PO ONE (07:30)
[2016-10-23] MEDS: IPRATRPIUM/ALBUTEROL 0.5/2.5MG 3 ML NEBU. NEB SCH ×4 (07:35→20:27)
[2016-10-23] MEDS: busPIRone 5 MG TABLET. PO SCH ×3 (08:12→21:05)
[2016-10-23] MEDS: methylPREDNISolone SOD SUCC PF 40 MG/ML VIAL. IV SCH ×3 (08:12→21:10)
[2016-10-23] MEDS: FOLIC ACID 1 MG TABLET PO SCH (08:12)
[2016-10-23] MEDS: EZETIMIBE 10 MG TABLET PO SCH (08:12)
[2016-10-23] MEDS: PANTOPRAZOLE 40 MG TABLET. PO SCH (08:12)
[2016-10-23] MEDS: SUCRALFATE 1 GM TABLET. PO SCH ×4 (08:12→21:05)
[2016-10-23] MEDS: METHIMAZOLE 10 MG TABLET PO SCH (08:12)
[2016-10-23] MEDS: OLANZAPINE 5 MG TABLET. PO SCH (08:13)
[2016-10-23] MEDS: HALOPERIDOL 5 MG TABLET PO SCH ×3 (08:13→21:05)
[2016-10-23] MEDS: ESCITALOPRAM 10 MG TABLET. PO SCH (08:13)
[2016-10-23 11:00] VITALS: BP 125/69
--- NOTE | 2016-10-23 12:42 | CONS ---
DATE OF CONSULTATION: 10/22/2016 ATTENDING PHYSICIAN: Dr. Raya. REASON FOR CONSULTATION: The patient is seen in pulmonary consultation at the request of Dr. Raya for increasing shortness of air. HISTORY OF PRESENT ILLNESS: The patient is a 56-year-old male with underlying psychiatric illness, diabetes type 2, gastroesophageal reflux, and tobacco dependence, presented with increasing shortness of breath. He states he has been sick over the last 2 to 3 days, coughing up some green sputum. No fever. No chills. No nausea, vomiting, or diarrhea. Denies hemoptysis. His x-ray was reviewed. There was increased interstitial markings compatible with the possibility of viral pneumonitis. PAST MEDICAL HISTORY: COPD, tobacco dependence, anemia, anxiety, depression, type 2 diabetes, hyperlipidemia, and hypothyroidism. PAST SURGICAL HISTORY: None. ALLERGIES: No known drug allergies. REVIEW OF SYSTEMS: As indicated above, otherwise, a 10-point system was reviewed and negative. MEDICATIONS: Current medication list was reviewed. SOCIAL HISTORY: He continues to smoke. Denies any alcohol. PHYSICAL EXAMINATION: GENERAL: The patient was in no respiratory distress. VITAL SIGNS: Stable. O2 saturation currently on 2 liters was greater than 92%. HEENT: Eyes, the sclerae were nonicteric. NECK: Jugular venous distention was not elevated. No lymphadenopathy. CHEST: Full expansion. LUNGS: Poor airway flow with both expiratory and inspiratory wheeze, rales bilaterally. CARDIOVASCULAR: Regular rate and rhythm with S1, S2, no S3. ABDOMEN: Soft, nontender, nondistended. EXTREMITIES: No clubbing, cyanosis or edema. NEUROLOGIC: The patient was awake, alert, following commands. A detailed neuro exam was not performed. LABORATORY DATA: White count was elevated at 18,000. Electrolytes were noted. Sodium was low and potassium was low. Albumin was low. Influenza screen was negative. DIAGNOSTIC DATA: Chest x-ray as indicated above. IMPRESSION: 1. Abnormal x-ray compatible with pneumonia, possible viral pneumonitis. 2. Acute respiratory failure secondary to pneumonia and acute exacerbation of chronic obstructive pulmonary disease. 3. Leukocytosis. 4. Hyponatremia, suspect secondary to pneumonia. 5. Severe protein malnutrition, present upon admission. PLAN: 1. Continue current oxygen supplementation. 2. Steroids. 3. Empiric antibiotics. 4. Consult dietitian for malnutrition. 5. Nebulized treatments. 6. Continue home medications. I do appreciate the privilege in sharing in the patient's care. CATARINO PAYNE MD DR: SHAMIR/claudio JOB#: [id number] / [id number]
[2016-10-23 14:52] VITALS: BP 128/76
--- NOTE | 2016-10-23 15:41 | PDOC ---
PULMONARY PROGRESS NOTES Subjective pt less soa Vitals Vital Signs Date Time Temp Pulse Resp B/P Pulse Ox O2 Delivery O2 Flow Rate FiO2 10/23/16 15:08 93 Room Air 10/23/16 14:52 97.7 115 20 128/76 97.7 10/22/16 20:00 2.0 ROS: No Nausea, No Chest Pain, No Abdominal Pain, No Increase Cough General: Alert Lungs: Wheezing Cardiovascular: S1, S2 Abdomen: Soft Neuro Exam: Alert Extremities: No Edema Skin: Warm Labs Laboratory Tests Test 10/21/16 20:45 10/22/16 03:38 10/22/16 07:38 10/22/16 08:55 White Blood Count 18.6x10^3/uL (4.0-11.0) Red Blood Count 3.90x10^6/uL (4.30-5.70) Hemoglobin 11.3g/dL (13.0-17.5) Hematocrit 34.0% (39.0-53.0) Mean Corpuscular Volume 87fL (79-100) Mean Corpuscular Hemoglobin 29pg (25-35) Mean Corpuscular Hemoglobin Concent 33g/dL (31-37) Red Cell Distribution Width 15.2% (11.5-14.5) Platelet Count 707x10^3/uL (140-400) Neutrophils (%) (Auto) 86% (31-73) Lymphocytes (%) (Auto) 8% (24-48) Monocytes (%) (Auto) 6% (0-9) Eosinophils (%) (Auto) 0% (0-3) Basophils (%) (Auto) 0% (0-3) Neutrophils # (Auto) 16.1x10^3uL (1.8-7.7) Lymphocytes # (Auto) 1.4x10^3/uL (1.0-4.8) Monocytes # (Auto) 1.1x10^3/uL (0.0-1.1) Eosinophils # (Auto) 0.0x10^3/uL (0.0-0.7) Basophils # (Auto) 0.1x10^3/uL (0.0-0.2) Segmented Neutrophils % 87% (35-66) Band Neutrophils % 2% (0-9) Lymphocytes % 7% (24-48) Monocytes % 4% (0-10) Toxic Granulation Slight Toxic Vacuolation Slight Platelet Estimate Increased (ADEQUATE) Sodium Level 135mmol/L (136-145) Potassium Level 3.4mmol/L (3.5-5.1) Chloride Level 97mmol/L (98-107) Carbon Dioxide Level 28mmol/L (21-32) Anion Gap 10 (6-14) Blood Urea Nitrogen 15mg/dL (8-26) Creatinine 1.2mg/dL (0.7-1.3) Estimated GFR (Cockcroft-Gault) 76.1 BUN/Creatinine Ratio 13 (6-20) Glucose Level 120mg/dL (70-99) Calcium Level 8.9mg/dL (8.5-10.1) Total Bilirubin 0.7mg/dL (0.2-1.0) Aspartate Amino Transf (AST/SGOT) 35U/L (15-37) Alanine Aminotransferase (ALT/SGPT) 46U/L (16-63) Alkaline Phosphatase 264U/L (46-116) Troponin I Quantitative < 0.017ng/mL (0.000-0.055) < 0.017ng/mL (0.000-0.055) < 0.017ng/mL (0.000-0.055) BR-Obi-G-Type Natriuretic Peptide 120pg/mL (0-124) Total Protein 8.2g/dL (6.4-8.2) Albumin 2.4g/dL (3.4-5.0) Albumin/Globulin Ratio 0.4 (1.0-1.7) Influenza Type A Antigen Negative (NEGATIVE) Influenza Type B Antigen Negative (NEGATIVE) Glucose (Fingerstick) 141mg/dL (70-99) Test 10/23/16 03:55 White Blood Count 17.9x10^3/uL (4.0-11.0) Red Blood Count 3.49x10^6/uL (4.30-5.70) Hemoglobin 10.2g/dL (13.0-17.5) Hematocrit 30.3% (39.0-53.0) Mean Corpuscular Volume 87fL (79-100) Mean Corpuscular Hemoglobin 29pg (25-35) Mean Corpuscular Hemoglobin Concent 34g/dL (31-37) Red Cell Distribution Width 15.1% (11.5-14.5) Platelet Count 795x10^3/uL (140-400) Neutrophils (%) (Auto) 82% (31-73) Lymphocytes (%) (Auto) 12% (24-48) Monocytes (%) (Auto) 6% (0-9) Eosinophils (%) (Auto) 0% (0-3) Basophils (%) (Auto) 0% (0-3) Neutrophils # (Auto) 14.6x10^3uL (1.8-7.7) Lymphocytes # (Auto) 2.1x10^3/uL (1.0-4.8) Monocytes # (Auto) 1.1x10^3/uL (0.0-1.1) Eosinophils # (Auto) 0.0x10^3/uL (0.0-0.7) Basophils # (Auto) 0.0x10^3/uL (0.0-0.2) Sodium Level 141mmol/L (136-145) Potassium Level 3.2mmol/L (3.5-5.1) Chloride Level 106mmol/L (98-107) Carbon Dioxide Level 25mmol/L (21-32) Anion Gap 10 (6-14) Blood Urea Nitrogen 16mg/dL (8-26) Creatinine 1.1mg/dL (0.7-1.3) Estimated GFR (Cockcroft-Gault) 84.1 Glucose Level 131mg/dL (70-99) Calcium Level 8.5mg/dL (8.5-10.1) Thyroid Stimulating Hormone (TSH) 0.711uIU/mL (0.358-3.74) Laboratory Tests Test 10/23/16 03:55 White Blood Count 17.9x10^3/uL (4.0-11.0) Red Blood Count 3.49x10^6/uL (4.30-5.70) Hemoglobin 10.2g/dL (13.0-17.5) Hematocrit 30.3% (39.0-53.0) Mean Corpuscular Volume 87fL (79-100) Mean Corpuscular Hemoglobin 29pg (25-35) Mean Corpuscular Hemoglobin Concent 34g/dL (31-37) Red Cell Distribution Width 15.1% (11.5-14.5) Platelet Count 795x10^3/uL (140-400) Neutrophils (%) (Auto) 82% (31-73) Lymphocytes (%) (Auto) 12% (24-48) Monocytes (%) (Auto) 6% (0-9) Eosinophils (%) (Auto) 0% (0-3) Basophils (%) (Auto) 0% (0-3) Neutrophils # (Auto) 14.6x10^3uL (1.8-7.7) Lymphocytes # (Auto) 2.1x10^3/uL (1.0-4.8) Monocytes # (Auto) 1.1x10^3/uL (0.0-1.1) Eosinophils # (Auto) 0.0x10^3/uL (0.0-0.7) Basophils # (Auto) 0.0x10^3/uL (0.0-0.2) Sodium Level 141mmol/L (136-145) Potassium Level 3.2mmol/L (3.5-5.1) Chloride Level 106mmol/L (98-107) Carbon Dioxide Level 25mmol/L (21-32) Anion Gap 10 (6-14) Blood Urea Nitrogen 16mg/dL (8-26) Creatinine 1.1mg/dL (0.7-1.3) Estimated GFR (Cockcroft-Gault) 84.1 Glucose Level 131mg/dL (70-99) Calcium Level 8.5mg/dL (8.5-10.1) Thyroid Stimulating Hormone (TSH) 0.711uIU/mL (0.358-3.74) Medications Active Scripts Medications Dose Route/Sig Days Date Category Methimazole 5 Mg Tablet 5 Mg PO 10/22/16 Reported Zetia (Ezetimibe) 10 Mg Tablet 1 Tab PO DAILY 10/22/16 Reported Albuterol Sulfate Neb Soln (Albuterol Sulfate) 0.63 Mg/3 Ml Vial.neb 0.083 Mg NEB 05/09/14 Reported Ventolin Hfa Inhaler (Albuterol Sulfate) 18 Gm Hfa.aer.ad 2 Puff INH QID 05/09/14 Reported Guaifenesin Ac Cough Syrup (Guaifenesin/Codeine Phosphate) 473 Ml Liquid 5 Ml PO PRN Q6HRS PRN 05/09/14 Reported Carafate (Sucralfate) 1 Gm Tablet 1 Gm PO QIDACHS 05/09/14 Reported Spiriva (Tiotropium [place]) 18 Mcg Cap.w.dev 2 Inh IH DAILY 05/09/14 Reported Olanzapine 10 Mg Tablet 15 Mg PO DAILY 05/09/14 Reported Multivitamins (Multivitamin) 1 Each Tablet 1 Each PO DAILY 05/09/14 Reported Metformin Hcl 850 Mg Tablet 850 Mg PO BID 05/09/14 Reported Lansoprazole 30 Mg Capsule.dr 30 Mg PO BID 05/09/14 Reported Haloperidol 5 Mg Tablet 5 Mg PO TID 05/09/14 Reported Folic Acid 1 Mg Tablet 1 Mg PO DAILY 05/09/14 Reported Escitalopram Oxalate 10 Mg Tablet 10 Mg PO DAILY 05/09/14 Reported Crestor (Rosuvastatin Calcium) 20 Mg Tablet 20 Mg PO HS 05/09/14 Reported Buspirone Hcl 15 Mg Tablet 15 Mg PO TID 05/09/14 Reported Advair 250-50 Diskus (Fluticasone/Salmeterol) 1 Each Disk.w.dev 1 Inh IH BID 05/09/14 Reported Impression . 1. Abnormal x-ray compatible with pneumonia, possible viral pneumonitis. 2. Acute respiratory failure secondary to pneumonia and acute exacerbation of chronic obstructive pulmonary disease. 3. Leukocytosis. 4. Hyponatremia, suspect secondary to pneumonia. 5. Severe protein malnutrition, present upon admission. Plan . improving will continue the same CATARINO PAYNE MD Oct 23, 2016 15:41
[2016-10-23 19:00] VITALS: BP 119/63
[2016-10-23] MEDS ORDERED: LEVOFLOXACIN 500 MG TABLET PO SCH (21:00)
[2016-10-23] MEDS: ATORVASTATIN CALCIUM 10 MG TABLET. PO SCH (21:05)
[2016-10-23 23:00] VITALS: BP 121/69
[2016-10-24 03:00] VITALS: BP 121/69
[2016-10-24] MEDS: methylPREDNISolone SOD SUCC PF 40 MG/ML VIAL. IV SCH ×2 (06:03→13:34)
[2016-10-24 06:28] LABS: BASO % 0 % (0-3); EOS % 0 % (0-3); HEMATOCRIT 32.9 % (39.0-53.0); HEMOGLOBIN 10.3 g/dL (13.0-17.5); LYMPH # 1.2 x10^3/uL (1.0-4.8); LYMPH % 9 % (24-48); MEAN CORPUSCULAR HEMOGLOBIN 28 pg (25-35); MEAN CORPUSCULAR HGB CONC 31 g/dL (31-37); MEAN CORPUSCULAR VOLUME 89 fL (79-100); MONO % 4 % (0-9); NEUT % 87 % (31-73); PLATELET COUNT 827 x10^3/uL (140-400); RED BLOOD COUNT 3.68 x10^6/uL (4.30-5.70); RED CELL DISTRIBUTION WIDTH 15.5 % (11.5-14.5); WHITE BLOOD COUNT 13.6 x10^3/uL (4.0-11.0)
[2016-10-24 06:40] LABS: CREATININE 1.2 mg/dL (0.7-1.3); GFR 76.1
[2016-10-24 06:45] LABS: POTASSIUM 5.3 mmol/L (3.5-5.1)
[2016-10-24 07:00] VITALS: BP 125/76
--- NOTE | 2016-10-24 07:11 | PDOC ---
SUBJECTIVE Subjective Pt states that he is feeling much better and would like to go home. OBJECTIVE Vital Signs Vital Signs Date Time Temp Pulse Resp B/P Pulse Ox O2 Delivery O2 Flow Rate FiO2 10/24/16 03:00 97.8 86 20 121/69 98 Room Air 97.8 10/23/16 23:00 97.9 69 20 121/69 92 Room Air 97.9 10/23/16 20:29 99 Room Air 10/23/16 20:18 Room Air 10/23/16 19:00 98.3 94 20 119/63 95 Room Air 98.3 10/23/16 15:08 93 Room Air 10/23/16 14:52 97.7 115 20 128/76 92 Room Air 97.7 10/23/16 11:31 93 Room Air 10/23/16 11:00 97.4 93 20 125/69 93 Room Air 97.4 10/23/16 08:00 Room Air 10/23/16 07:36 92 Room Air I & O Intake and Output 10/24/16 07:00 Intake Total 472 ml Balance 472 ml Intake Oral 472 ml # Voids 9 # Bowel Movements 3 PHYSICAL EXAM Physical Exam General: Alert, Oriented X3, Cooperative, No acute distress HEENT: Atraumatic, PERRLA, EOMI, Mucous membr. moist/pink Lungs: Normal air movement, inspiratory and expiratory wheezing throughout Heart: RRR, no rubs, no gallops, no murmurs Abdomen: Normal bowel sounds, Soft, No tenderness, No hepatosplenomegaly Extremities: No clubbing, No cyanosis, No edema Skin: No rashes, No significant lesion Neuro: Normal speech, Cranial nerves 3-12 NL Psych/Mental Status: Mental status NL, Mood NL ASSESSMENT/PLAN Assessment/Plan Pt is a 56yo AAM admitted for COPD exacerbation 1)COPD Exacerbation- pt started on Prednisone and Levaquin. Pt's WBC initially elevated at 18.6, decreased to 13.6 this morning. Pulmonary following. 2)Hx of DM2- pt is not on any diabetes medications. Fasting BS this morning was 120. HbA1C this admission was 6.6 3)Depression/Schizophrenia- pt continued on Escitalopram 10mg, Haldol 5mg TID, Olanzapine 15mg qday and Buspirone 15mg TID 4)Hyperthyroidism- TSH at goal this admission. Pt continued on Methimazole 5mg 5)Hx Hudson's - pt transitioned to Pantoprazole 40mg and continued on Sucralfate 1g 6)HLD- pt transitioned to Atorvastatin 10mg and continued on Zetia 7)Anemia- mild. No active bleeding. CTM 8)Hyponatremia- mild, resolved 9)PEM- severe 10Hypokalemia- replaced, now elevated 11)Thrombocytosis- continuing to increase. Will start aspirin Problems: COMMENT Lab Laboratory Tests Test 10/23/16 21:26 10/24/16 06:15 Glucose (Fingerstick) 139mg/dL (70-99) White Blood Count 13.6x10^3/uL (4.0-11.0) Red Blood Count 3.68x10^6/uL (4.30-5.70) Hemoglobin 10.3g/dL (13.0-17.5) Hematocrit 32.9% (39.0-53.0) Mean Corpuscular Volume 89fL (79-100) Mean Corpuscular Hemoglobin 28pg (25-35) Mean Corpuscular Hemoglobin Concent 31g/dL (31-37) Red Cell Distribution Width 15.5% (11.5-14.5) Platelet Count 827x10^3/uL (140-400) Neutrophils (%) (Auto) 87% (31-73) Lymphocytes (%) (Auto) 9% (24-48) Monocytes (%) (Auto) 4% (0-9) Eosinophils (%) (Auto) 0% (0-3) Basophils (%) (Auto) 0% (0-3) Neutrophils # (Auto) 11.9x10^3uL (1.8-7.7) Lymphocytes # (Auto) 1.2x10^3/uL (1.0-4.8) Monocytes # (Auto) 0.5x10^3/uL (0.0-1.1) Eosinophils # (Auto) 0.0x10^3/uL (0.0-0.7) Basophils # (Auto) 0.0x10^3/uL (0.0-0.2) Sodium Level 142mmol/L (136-145) Potassium Level 5.3mmol/L (3.5-5.1) Chloride Level 107mmol/L (98-107) Carbon Dioxide Level 26mmol/L (21-32) Anion Gap 9 (6-14) Blood Urea Nitrogen 16mg/dL (8-26) Creatinine 1.2mg/dL (0.7-1.3) Estimated GFR (Cockcroft-Gault) 76.1 Glucose Level 120mg/dL (70-99) Calcium Level 9.0mg/dL (8.5-10.1) JOEL HOLLIS MD Oct 24, 2016 07:11
[2016-10-24] MEDS: IPRATRPIUM/ALBUTEROL 0.5/2.5MG 3 ML NEBU. NEB SCH ×3 (07:27→14:51)
[2016-10-24] MEDS: PANTOPRAZOLE 40 MG TABLET. PO SCH (07:33)
[2016-10-24] MEDS: SUCRALFATE 1 GM TABLET. PO SCH ×2 (07:33→11:47)
[2016-10-24] MEDS ORDERED: ASPIRIN 81 MG TAB.CHEW PO SCH (08:00)
[2016-10-24] MEDS: HALOPERIDOL 5 MG TABLET PO SCH ×2 (08:29→13:33)
[2016-10-24] MEDS: FOLIC ACID 1 MG TABLET PO SCH (08:29)
[2016-10-24] MEDS: EZETIMIBE 10 MG TABLET PO SCH (08:29)
[2016-10-24] MEDS: METHIMAZOLE 10 MG TABLET PO SCH (08:29)
[2016-10-24] MEDS: ESCITALOPRAM 10 MG TABLET. PO SCH (08:29)
[2016-10-24] MEDS: busPIRone 5 MG TABLET. PO SCH ×2 (08:30→13:33)
[2016-10-24] MEDS: OLANZAPINE 5 MG TABLET. PO SCH (08:30)
[2016-10-24 11:00] VITALS: BP 123/62
[2016-10-24] MEDS ORDERED: PRED-220 PO (14:49)
[2016-10-24] MEDS ORDERED: LEVO500T38 PO (14:49)
[2016-10-24] MEDS ORDERED: ASPI81TA44 PO (14:49)
[2016-10-24 14:50] VITALS: BP 119/66
--- NOTE | 2016-10-24 16:19 | PDOC ---
PULMONARY PROGRESS NOTES Subjective PT FEELS BETTER WANTS TO GO HOME Vitals Vital Signs Date Time Temp Pulse Resp B/P Pulse Ox O2 Delivery O2 Flow Rate FiO2 10/24/16 14:51 Room Air 10/24/16 14:50 97.4 92 16 119/66 93 97.4 ROS: No Nausea, No Chest Pain, No Abdominal Pain, No Increase Cough General: Alert Lungs: Clear Cardiovascular: S1, S2 Abdomen: Soft Neuro Exam: Alert Extremities: No Edema Skin: Warm Labs Laboratory Tests Test 10/23/16 03:55 10/23/16 21:26 10/24/16 06:15 10/24/16 11:19 White Blood Count 17.9x10^3/uL (4.0-11.0) 13.6x10^3/uL (4.0-11.0) Red Blood Count 3.49x10^6/uL (4.30-5.70) 3.68x10^6/uL (4.30-5.70) Hemoglobin 10.2g/dL (13.0-17.5) 10.3g/dL (13.0-17.5) Hematocrit 30.3% (39.0-53.0) 32.9% (39.0-53.0) Mean Corpuscular Volume 87fL (79-100) 89fL (79-100) Mean Corpuscular Hemoglobin 29pg (25-35) 28pg (25-35) Mean Corpuscular Hemoglobin Concent 34g/dL (31-37) 31g/dL (31-37) Red Cell Distribution Width 15.1% (11.5-14.5) 15.5% (11.5-14.5) Platelet Count 795x10^3/uL (140-400) 827x10^3/uL (140-400) Neutrophils (%) (Auto) 82% (31-73) 87% (31-73) Lymphocytes (%) (Auto) 12% (24-48) 9% (24-48) Monocytes (%) (Auto) 6% (0-9) 4% (0-9) Eosinophils (%) (Auto) 0% (0-3) 0% (0-3) Basophils (%) (Auto) 0% (0-3) 0% (0-3) Neutrophils # (Auto) 14.6x10^3uL (1.8-7.7) 11.9x10^3uL (1.8-7.7) Lymphocytes # (Auto) 2.1x10^3/uL (1.0-4.8) 1.2x10^3/uL (1.0-4.8) Monocytes # (Auto) 1.1x10^3/uL (0.0-1.1) 0.5x10^3/uL (0.0-1.1) Eosinophils # (Auto) 0.0x10^3/uL (0.0-0.7) 0.0x10^3/uL (0.0-0.7) Basophils # (Auto) 0.0x10^3/uL (0.0-0.2) 0.0x10^3/uL (0.0-0.2) Sodium Level 141mmol/L (136-145) 142mmol/L (136-145) Potassium Level 3.2mmol/L (3.5-5.1) 5.3mmol/L (3.5-5.1) Chloride Level 106mmol/L (98-107) 107mmol/L (98-107) Carbon Dioxide Level 25mmol/L (21-32) 26mmol/L (21-32) Anion Gap 10 (6-14) 9 (6-14) Blood Urea Nitrogen 16mg/dL (8-26) 16mg/dL (8-26) Creatinine 1.1mg/dL (0.7-1.3) 1.2mg/dL (0.7-1.3) Estimated GFR (Cockcroft-Gault) 84.1 76.1 Glucose Level 131mg/dL (70-99) 120mg/dL (70-99) Hemoglobin A1c 6.6% (4.8-5.6) Calcium Level 8.5mg/dL (8.5-10.1) 9.0mg/dL (8.5-10.1) Thyroid Stimulating Hormone (TSH) 0.711uIU/mL (0.358-3.74) Glucose (Fingerstick) 139mg/dL (70-99) 162mg/dL (70-99) Laboratory Tests Test 10/23/16 21:26 10/24/16 06:15 10/24/16 11:19 Glucose (Fingerstick) 139mg/dL (70-99) 162mg/dL (70-99) White Blood Count 13.6x10^3/uL (4.0-11.0) Red Blood Count 3.68x10^6/uL (4.30-5.70) Hemoglobin 10.3g/dL (13.0-17.5) Hematocrit 32.9% (39.0-53.0) Mean Corpuscular Volume 89fL (79-100) Mean Corpuscular Hemoglobin 28pg (25-35) Mean Corpuscular Hemoglobin Concent 31g/dL (31-37) Red Cell Distribution Width 15.5% (11.5-14.5) Platelet Count 827x10^3/uL (140-400) Neutrophils (%) (Auto) 87% (31-73) Lymphocytes (%) (Auto) 9% (24-48) Monocytes (%) (Auto) 4% (0-9) Eosinophils (%) (Auto) 0% (0-3) Basophils (%) (Auto) 0% (0-3) Neutrophils # (Auto) 11.9x10^3uL (1.8-7.7) Lymphocytes # (Auto) 1.2x10^3/uL (1.0-4.8) Monocytes # (Auto) 0.5x10^3/uL (0.0-1.1) Eosinophils # (Auto) 0.0x10^3/uL (0.0-0.7) Basophils # (Auto) 0.0x10^3/uL (0.0-0.2) Sodium Level 142mmol/L (136-145) Potassium Level 5.3mmol/L (3.5-5.1) Chloride Level 107mmol/L (98-107) Carbon Dioxide Level 26mmol/L (21-32) Anion Gap 9 (6-14) Blood Urea Nitrogen 16mg/dL (8-26) Creatinine 1.2mg/dL (0.7-1.3) Estimated GFR (Cockcroft-Gault) 76.1 Glucose Level 120mg/dL (70-99) Calcium Level 9.0mg/dL (8.5-10.1) Medications Active Scripts Medications Dose Route/Sig Days Date Category Methimazole 5 Mg Tablet 5 Mg PO 10/22/16 Reported Zetia (Ezetimibe) 10 Mg Tablet 1 Tab PO DAILY 10/22/16 Reported Albuterol Sulfate Neb Soln (Albuterol Sulfate) 0.63 Mg/3 Ml Vial.neb 0.083 Mg NEB 05/09/14 Reported Ventolin Hfa Inhaler (Albuterol Sulfate) 18 Gm Hfa.aer.ad 2 Puff INH QID 05/09/14 Reported Guaifenesin Ac Cough Syrup (Guaifenesin/Codeine Phosphate) 473 Ml Liquid 5 Ml PO PRN Q6HRS PRN 05/09/14 Reported Carafate (Sucralfate) 1 Gm Tablet 1 Gm PO QIDACHS 05/09/14 Reported Spiriva (Tiotropium [place]) 18 Mcg Cap.w.dev 2 Inh IH DAILY 05/09/14 Reported Olanzapine 10 Mg Tablet 15 Mg PO DAILY 05/09/14 Reported Multivitamins (Multivitamin) 1 Each Tablet 1 Each PO DAILY 05/09/14 Reported Metformin Hcl 850 Mg Tablet 850 Mg PO BID 05/09/14 Reported Lansoprazole 30 Mg Capsule.dr 30 Mg PO BID 05/09/14 Reported Haloperidol 5 Mg Tablet 5 Mg PO TID 05/09/14 Reported Folic Acid 1 Mg Tablet 1 Mg PO DAILY 05/09/14 Reported Escitalopram Oxalate 10 Mg Tablet 10 Mg PO DAILY 05/09/14 Reported Crestor (Rosuvastatin Calcium) 20 Mg Tablet 20 Mg PO HS 05/09/14 Reported Buspirone Hcl 15 Mg Tablet 15 Mg PO TID 05/09/14 Reported Advair 250-50 Diskus (Fluticasone/Salmeterol) 1 Each Disk.w.dev 1 Inh IH BID 05/09/14 Reported Impression . 1. Abnormal x-ray compatible with pneumonia, possible viral pneumonitis. 2. Acute respiratory failure secondary to pneumonia and acute exacerbation of chronic obstructive pulmonary disease. 3. Leukocytosis. 4. Hyponatremia, suspect secondary to pneumonia. 5. Severe protein malnutrition, present upon admission. Plan . HOME ON [facility] AND [employer]AP[employer] CATARINO PAYNE MD Oct 24, 2016 16:19
[2016-10-25] MEDS ORDERED: PREDNISONE 10 MG TABLET PO SCH (09:00)
== END 2016-10-24 16:46 | disposition home or self-care (01) | DRG 189 ==
LOC: ER 20:16 → 5 NORTH 21:50
PROVIDERS: ADMIT Family Medicine; ATTEND Family Medicine
DX: J96.00 Acute respiratory failure, unspecified whether with hypoxia or hypercapnia (principal); J18.9 Pneumonia, unspecified organism; E43 Unspecified severe protein-calorie malnutrition; J44.1 Chronic obstructive pulmonary disease with (acute) exacerbation; E87.1 Hypo-osmolality and hyponatremia; J44.0 Chronic obstructive pulmonary disease with (acute) lower respiratory infection; D64.9 Anemia, unspecified; D75.89 Other specified diseases of blood and blood-forming organs; E03.9 Hypothyroidism, unspecified; E11.9 Type 2 diabetes mellitus without complications; E78.00 Pure hypercholesterolemia, unspecified; E78.5 Hyperlipidemia, unspecified; F20.9 Schizophrenia, unspecified; F32.9 Major depressive disorder, single episode, unspecified; I10 Essential (primary) hypertension; J45.909 Unspecified asthma, uncomplicated; K21.9 Gastro-esophageal reflux disease without esophagitis; K22.70 Barrett's esophagus without dysplasia; F29 Unspecified psychosis not due to a substance or known physiological condition; F41.9 Anxiety disorder, unspecified; E05.90 Thyrotoxicosis, unspecified without thyrotoxic crisis or storm; F17.210 Nicotine dependence, cigarettes, uncomplicated; Z68.20 Body mass index [BMI] 20.0-20.9, adult; Z83.3 Family history of diabetes mellitus
CPT/HCPCS: 36415; 71010; 80048; 80053; 82947; 83036; 83880; 84443; 84484; 85007; 85027; 87804; 90686; 93005; 94250; 94640; 94760; 96374; 96375; 99406; J1956; J2920; J2930; J7030; J7512; J7620; 99285-25

== ENCOUNTER 2017-04-01 10:46 | Emergency (ER) | payer MEDICARE, OTHER ==
[~2017-04-01] VITALS: Ht 154.9 cm; Wt 49.9 kg
[~2017-04-01 10:46] MED LIST changes: +ASPI81TA44 PO; -ESCI10TA PO; +ESCITALOPRAM OX10 MG PO; +EZET10TA18 PO; +LEVO500T59 PO; +METH5TAB6 PO; +PRED-220 PO; -SUCR1TAB29 PO; +SUCR1TAB35 PO
[2017-04-01 11:15] VITALS: BP 116/56
--- NOTE | 2017-04-01 11:59 | RAD ---
Indication soreness and swelling. Pain. No history of recent injury or trauma. AP oblique and lateral views of the right hand were obtained. No acute bony finding is seen. Significant degenerative changes are not apparent on plain films
[2017-04-01] MEDS ORDERED: CEPH500T PO (12:17)
--- NOTE | 2017-04-01 12:18 | PHYS DOC ---
Past Medical History Past Medical History: Anemia, Anxiety, Depression, Diabetes-Type II, GERD, High Cholesterol, Hypothyroid, Other Additional Past Medical Histor: PSYCHOSIS Past Surgical History: No Surgical History Alcohol Use: None Drug Use: None Adult General Chief Complaint Chief Complaint: HAND PROBLEM HPI HPI Patient is a 56 year old male presents to emergency department stating that he has had redness and warmth tenderness with swelling to his right hand. He states this is been occurring for the last week. He denies any injury or trauma to the hand. Patient denies any fever, chills or any nausea or vomiting. He has not taken anything for the pain and discomfort. Patient is unsure when his last tetanus physician occurred. Review of Systems Review of Systems Constitutional: Denies fever or chills [] Eyes: Denies change in visual acuity, redness, or eye pain [] HENT: Denies nasal congestion or sore throat [] Respiratory: Denies cough or shortness of breath [] Cardiovascular: No additional information not addressed in HPI [] GI: Denies abdominal pain, nausea, vomiting, bloody stools or diarrhea [] : Denies dysuria or hematuria [] Musculoskeletal: Denies back pain or joint pain [] Integument: Denies rash or skin lesions. Right hand with redness warmth tenderness and swelling noted around the first through fifth metacarpal area. Neurologic: Denies headache, focal weakness or sensory changes [] Endocrine: Denies polyuria or polydipsia [] Allergies Allergies Allergies Coded Allergies Type Severity Reaction Last Updated Verified No Known Drug Allergies 05/09/14 No Physical Exam Physical Exam Constitutional: Well developed, well nourished, no acute distress, non-toxic appearance. [] HENT: Normocephalic, atraumatic, bilateral external ears normal, oropharynx moist, no oral exudates, nose normal. [] Eyes: PERRLA, EOMI, conjunctiva normal, no discharge. [] Neck: Normal range of motion, no tenderness, supple, no stridor. [] Cardiovascular:Heart rate regular rhythm, no murmur [] Lungs & Thorax: Bilateral breath sounds clear to auscultation [] Skin: Warm, dry, no erythema, no rash. Patient with right hand appears to be red warm swollen and tender. No drainage or discharge coming from the site. Cap refill Brisk less than 2 seconds. Patient with full range of motion noted with the right hand.] Extremities: No tenderness, no cyanosis, no clubbing, ROM intact, no edema. [] Neurologic: Alert and oriented X 3, normal motor function, normal sensory function, no focal deficits noted. Psychologic: Affect normal, judgement normal, mood normal. [] Current Patient Data Vital Signs Vital Signs Date Time Temp Pulse Resp B/P (MAP) Pulse Ox O2 Delivery O2 Flow Rate FiO2 04/01/17 11:15 97.9 62 18 99 Room Air 97.9 EKG EKG [] Radiology/Procedures Radiology/Procedures [facility] [address] [place] [address] IMAGING REPORT Signed PATIENT: ZOË VÁZQUEZ ACCOUNT: [id number] : 1960 LOCATION: ER AGE: 56 SEX: M EXAM STATUS: REG ER ORD. PHYSICIAN: EZRA BELTRAN APRN REASON: pain and swelling PROCEDURE: HAND RIGHT 3V Indication soreness and swelling. Pain. No history of recent injury or trauma. AP oblique and lateral views of the right hand were obtained. No acute bony finding is seen. Significant degenerative changes are not apparent on plain films DICTATED and SIGNED BY: ROSI KOHLER MD DATE: 04/01/17 1154 CC: EZRA BELTRAN APRN; Elliot CALLOWAY MD; NON,STAFF ~ [] Course & Med Decision Making Course & Med Decision Making Pertinent Labs and Imaging studies reviewed. (See chart for details) X-rays, right hand 3 view are negative for any bony abnormalities. Patient will be discharged home with Keflex. Patient will be updated with a tetanus immunization here in the emergency department. Recommended Tylenol or ibuprofen for pain and discomfort. Elevation as much as possible. Signs and symptoms to return back to emergency department as been provided. Patient will be discharged home in stable condition questions were answered the patient's bedside. [] Dragon Disclaimer Dragon Disclaimer This electronic medical record was generated, in whole or in part, using a voice recognition dictation system. Departure Departure Impression: Primary Impression: Cellulitis of right hand Disposition: 01 HOME, SELF-CARE Condition: STABLE Referrals: Elliot CALLOWAY MD (PCP) Patient Instructions: Cellulitis, [id number] Additional Instructions: Activity as tolerated. Tylenol or ibuprofen for pain and discomfort. Elevation as much as possible. Antibiotics as prescribed. Make sure he take all the medication and incomplete them. Follow-up with your primary care physician next 3-5 days. Return back to emergency prior signs symptoms of become worse. Scripts Cephalexin (CEPHALEXIN) 500 Mg Tablet 1 TAB PO BID, #20 TAB Prov: EZRA BELTRAN APRN 04/01/17 EZRA BELTRAN APRN Apr 01, 2017 12:17
[2017-04-01] MEDS ORDERED: DIPHTH,PERTUSS(ACELL),TET TOX 0.5 ML DISP.SYRIN. VAX IM ONE (12:45)
== END 2017-04-01 12:25 | disposition home or self-care (01) ==
LOC: ER 10:46
DX: L03.113 Cellulitis of right upper limb (principal); E03.9 Hypothyroidism, unspecified; E11.9 Type 2 diabetes mellitus without complications; E78.00 Pure hypercholesterolemia, unspecified; K21.9 Gastro-esophageal reflux disease without esophagitis
CPT/HCPCS: 73130; 90471; 90715; 99284-25

== ENCOUNTER → 2019-07-07 | Outpatient (CLI) | payer OTHER ==
[2017-08-20 07:00] VITALS: BP 109/65
[~2019-07-07] MED LIST changes: -ASPI81TA44 PO; +ASPI81TA59 PO; +CEPH500T PO; -EZET10TA18 PO; +EZET10TA20 PO; +GLYC10.7 IH; +GUAI237L83 PO; -METF850T2 PO; +METF850T8 PO
--- NOTE | 2019-07-08 08:52 | KCIC ---
CHEST PA LATERAL History: Dyspnea Comparison: 10/21/2016 AP view of the chest. Findings: Frontal and lateral views of chest were obtained. The cardiomediastinal silhouette is normal. Pulmonary vasculature is normal. Subtle interstitial thickening of the lung hargrove again is seen. No pleural effusion or pneumothorax is seen. There is no acute bone abnormality. IMPRESSION: No acute cardiopulmonary process. Electronically signed by: Jonathan Henriquez MD (07/08/2019 8:49 AM) [facility]
== END | disposition home or self-care (01) ==
LOC: KCIC 10:59
PROVIDERS: ATTEND Internal Medicine Pulmonary Disease
DX: J92.9 Pleural plaque without asbestos (principal)
CPT/HCPCS: 71046

== ENCOUNTER → 2020-10-24 | Outpatient (CLI) | payer MEDICARE, OTHER ==
[2017-08-20 07:00] VITALS: BP 109/65
[~2020-10-24] MED LIST changes: +MULT-445 PO; -MULT1TAB52 PO
--- NOTE | 2020-10-24 15:04 | KCIC ---
Exam Date: 10/24/2020 11:03 AM XR CHEST 2V Indication: Reason: Mucopurulent chronic pneumonia. / Spl. Instructions: Cough, smoker, COPD / Histor y: Comparison: July 07, 2019 FINDINGS/ IMPRESSION: The cardiac silhouette and pulmonary vasculature are within normal limits. There is no focal consolidation, pleural effusion or pneumothorax. The visualized osseous structures are intact. Electronically signed by: Jeromy Nazario MD (10/24/2020 3:02 PM) [id number]
== END ==
LOC: KCIC 10:48
PROVIDERS: ATTEND Family Medicine
DX: J41.1 Mucopurulent chronic bronchitis (principal)
CPT/HCPCS: 71046

== ENCOUNTER → 2021-01-14 | Outpatient (CLI) | payer MEDICARE, OTHER ==
[2017-08-20 07:00] VITALS: BP 109/65
--- NOTE | 2021-01-14 14:50 | KCIC ---
EXAM: Chest, 2 views. HISTORY: Pain and swelling. COMPARISON: 10/24/2020 FINDINGS: 2 views of chest are obtained. There is nodular infiltrate throughout the left lung and lef t hemithorax volume loss with leftward mediastinal shift. There is no pneumothorax. There is no pleur al effusion. IMPRESSION: Nodular infiltrate throughout the left lung with associated left hemithorax volume loss. Follow-up to confirm resolution and exclude an underlying lesion. Electronically signed by: Cindy Samano MD (01/14/2021 2:48 PM) [id number]
--- NOTE | 2021-01-14 14:51 | KCIC ---
EXAM: Left foot, 3 views. HISTORY: Cough. COMPARISON: None. FINDINGS: 3 views of the left foot are obtained. There is no acute fracture, dislocation or subluxati on. There is a tiny plantar spur. IMPRESSION: No acute osseous finding. Electronically signed by: Cindy Samano MD (01/14/2021 2:48 PM) [id number]
== END ==
LOC: KCIC 14:24
PROVIDERS: ATTEND Family Medicine
DX: M77.32 Calcaneal spur, left foot (principal); M79.89 Other specified soft tissue disorders; R05 Cough; Z87.891 Personal history of nicotine dependence
CPT/HCPCS: 71046; 73630

== ENCOUNTER → 2021-01-29 | Outpatient (CLI) | payer MEDICARE, OTHER ==
[2017-08-20 07:00] VITALS: BP 109/65
--- NOTE | 2021-01-29 16:28 | KCIC ---
Chest, PA and Lateral: Technique: PA and lateral views of the chest were obtained. History: Cough. Comparison: None. Findings: Mild cardiomegaly.. Moderate size hiatal hernia identified diffuse interstitial opacities identified throughout the bilateral lungs particularly in the left similar to prior exam could be interstitial infiltrates. Mild degenerative changes thoracic spine. Impression: Diffuse interstitial opacities identified throughout the bilateral lungs particularly in the left sim ilar to prior exam could be interstitial infiltrates. Electronically signed by: Diomedes Mas MD (01/29/2021 4:25 PM) [id number]
== END ==
LOC: KCIC 15:18
PROVIDERS: ATTEND Family Medicine
DX: R05 Cough (principal); J98.4 Other disorders of lung; R91.8 Other nonspecific abnormal finding of lung field
CPT/HCPCS: 71046

== ENCOUNTER → 2021-02-07 | Outpatient (CLI) | payer MEDICARE, OTHER ==
[2017-08-20 07:00] VITALS: BP 109/65
--- NOTE | 2021-02-07 10:50 | KCIC ---
CT of the chest without contrast 02/07/2021 Indication: [Abnormal x-ray. Lung infiltrates] Comparison study: [. Chest radiograph January 14, 2021] Technique: Multidetector CT imaging of the chest was performed without the administration of contrast Findings: Diffuse tree-in-bud infiltrates are seen throughout the left upper and lower lobe. There is both uppe r and lower lobe bronchiectasis. Lower lobe bronchiectasis particularly involving the inferior left l ower lobe is severe. More dense consolidation more dense alveolar consolidation can be seen in the ba silar left lower lobe. Some areas of air bronchograms are seen. Multiple dilated bronchi contain debr is. There is a small left pleural effusion. There is a 1.1 cm noncalcified pulmonary nodule in the right upper lobe. Morphology is different than the infiltrates on the contralateral side. Severe subpleural emphysematous changes are noted, with multiple bilateral large subpleural blebs. No pneumothorax is seen. Heart size is normal. No pericardial effusion is identified. Limited noncontrast evaluation of the me diastinum demonstrates no definitive pathologically enlarged adenopathy. There is what appears to be a small hiatal hernia. Limited evaluation of the upper abdomen demonstrates no acute abnormality. No acute osseous changes a re identified. IMPRESSION: 1. Extensive diffuse tree-in-bud infiltrates throughout the left upper and lower lobe. The appearance favors an infectious or inflammatory process, such as mycoplasma or fungal infections. 2. Left upper and lower lobe bronchiectasis, with severe bronchiectasis in the basilar left lower lob e where there is more dense consolidation, and multiple dilated bronchi containing debris. Bronchosco pic evaluation may be helpful. 3. Small left pleural effusion 4. 1.1 cm noncalcified pulmonary nodule right upper lobe. Malignancy not excluded. PET/CT or tissue s ampling recommended as clinically indicated CT DOSING PQRS STATEMENT: One or more of the following individualized dose reduction techniques were utilized for this examinat ion: 1. Automated exposure control 2. Adjustment of the mA and/or kV according to patient size 3. Use of iterative reconstruction technique Electronically signed by: Christ Plata MD (02/07/2021 10:48 AM) [id number]
== END ==
LOC: KCIC CT 08:58
PROVIDERS: ATTEND Internal Medicine Pulmonary Disease
DX: J90 Pleural effusion, not elsewhere classified (principal); J47.9 Bronchiectasis, uncomplicated
CPT/HCPCS: 71250

== ENCOUNTER → 2021-02-21 | Day surgery (SDC) | payer MEDICARE, OTHER ==
[~2021-02-21] VITALS: Ht 154.9 cm; Wt 45.0 kg
[~2021-02-21] MED LIST changes: +ALBUTEROL SULFATE 2.5 MG/3 ML NEBU. NEB PRN; +ATOR40TA59 PO; +EPINEPHrine 1 MG/ML VIAL INJ PRN; +EPINEPHrine 1 MG/ML VIAL ONE; +HYDROmorphone 2 MG/ML VIAL IVP PRN; +IV RINGERS,LACTATED 1000ML 1,000 ML IV SCH; +LIDOCAINE 1% Multi-Dose 20 ML VIAL. INJ PRN; +LIDOCAINE 1% Multi-Dose 20 ML VIAL. ONE; +LIDOCAINE 2% PF 5 ML VIAL. ONE; +LIDOCAINE 2% VISCOUS 100 ML BOTTLE. MM PRN; +LIDOCAINE 2% VISCOUS 100 ML BOTTLE. ONE; +LIDOCAINE 4% TOPICAL 50 ML SOLUTION. MM PRN; +LIDOCAINE 4% TOPICAL 50 ML SOLUTION. ONE; +METH5TAB85 PO; +MORPHINE SULFATE 2 MG/ML INJ. IVP PRN; +OLAN10TA69 PO; -OLAN10TA9 PO; +OMEP40CA7 PO; +PROCHLORPERAZINE 10 MG/2 ML VIAL. IVP PRN; +PROPOFOL 10 MG/ML (20ML) VIAL. IV ONE; +VARE1TAB21 PO; +fentaNYL PF VIAL 100 MCG/2 ML VIAL IVP PRN
[2021-02-21 10:16] VITALS: BP 133/68
[2021-02-21 10:43] LABS: BASO # 0.1 x10^3/uL (0.0-0.2); BASO % 1 % (0-3); EOS # 0.1 x10^3/uL (0.0-0.7); EOS % 1 % (0-3); HEMATOCRIT 38.4 % (39.0-53.0); HEMOGLOBIN 12.9 g/dL (13.0-17.5); LYMPH # 2.3 x10^3/uL (1.0-4.8); LYMPH % 25 % (24-48); MEAN CORPUSCULAR HEMOGLOBIN 30 pg (25-35); MEAN CORPUSCULAR HGB CONC 34 g/dL (31-37); MEAN CORPUSCULAR VOLUME 88 fL (79-100); MONO # 0.8 x10^3/uL (0.0-1.1); MONO % 8 % (0-9); NEUT # 6.3 x10^3/uL (1.8-7.7); NEUT % 66 % (31-73); PLATELET COUNT 405 x10^3/uL (140-400); RED BLOOD COUNT 4.36 x10^6/uL (4.30-5.70); RED CELL DISTRIBUTION WIDTH 16.1 % (11.5-14.5); WHITE BLOOD COUNT 9.6 x10^3/uL (4.0-11.0)
[2021-02-21 11:45] VITALS: BP 127/66
--- NOTE | 2021-02-21 12:52 | OP ---
DATE OF SURGERY: 02/21/2021 PROCEDURES: Bronchoscopy, bronchoalveolar lavage. INDICATION: Abnormal CT, revealing a left upper lobe obstruction in the left main stem bronchus. Risks, benefits and alternatives reviewed with the patient and consent was obtained. SEDATION: Please see Anesthesia's notes. DESCRIPTION OF PROCEDURE: A timeout was performed prior to sedation. Vital signs and O2 saturations were maintained within normal limits throughout the procedure. The bronchoscope was then passed through the left naris. The vocal cords were identified moving bilaterally without any dysfunction. The vocal cords were anesthetized with a total of 5 mL of 4% lidocaine. Bronchoscope was passed through the vocal cords into the proximal trachea, which was normal. The distal trachea was likewise normal. The right segments and subsegments were visualized. There was no endobronchial lesion. Upon inspecting the left side, there was occlusion of the left upper lobe bronchus. There was also occlusion of the left lower lobe bronchus. Upon touching the endobronchial lesion within the left upper lobe bronchus, there was minimal amount of hemorrhage. I was able to perform two blinded biopsies of the left upper lobe bronchus. In addition, a lavage of the area was performed. Hemostasis was obtained prior to terminating the procedure. FINDINGS: 1. Normal vocal cords. 2. Normal right-sided segments and subsegments. 3. Occlusion of the left upper lobe and left lower lobe bronchus. 4. BAL and biopsies of the left upper lobe bronchus were performed. PLAN: 1. We will await the BAL results and biopsy results. 2. The patient to follow up with Dr. Conte in the office. SHAMIR/ELIAS DR: Lucina TID: [id number] CC: Elliot CALLOWAY MD, CHRISTIAN CONTE MD
--- NOTE | 2021-02-22 17:23 | PATHOLOGY ---
[facility] Accession Number: [id number] . 01 Material submitted: . lung - BBX: LEFT MAIN STEM. Modifiers: left, upper, MAINSTEM . 01 Clinical history: . POSSIBLE LUNG NODULE/CA BRONCHOSCOPY . 02 Diagnosis: Bronchial biopsies, left upper lobe/left main stem bronchus: - SQUAMOUS CELL CARCINOMA, MODERATELY DIFFERENTIATED. SEE COMMENT. (JPM:pit; 02/22/2021) QTP 02/22/2021 1100 Local . 02 Comment: Sections of the left upper lobe/main stem bronchial biopsy reveal a malignant epithelial neoplasm. The latter is composed of irregular solid nests of malignant cells which irregularly infiltrate a reactive desmoplastic stroma. The malignant cells have a polygonal, squamoid appearance. Some of the malignant cells have a high N/C ratio, whereas other tumor cells contain modest amounts of eosinophilic cytoplasm. The malignant cells possess enlarged, rounded to ovoid hyperchromatic nuclei containing prominent nucleoli. There are foci of keratinization. Mitotic figures are present. The morphologic findings are supportive of the diagnosis of a moderately differentiated squamous cell carcinoma. The case is also examined by Dr. Sandoval, who concurs with the diagnosis. The results are called to Dr. Arreola on 02/22/2021 at 9:00 AM. (JPM:pit; 02/22/2021) . 02 Electronically signed: . Abraham Mclain MD, Pathologist NPI- [id number] . 01 Gross description: . Received in formalin labeled "Mejias, Mike and MIKAYLA/left main stem". Received are 3 victoria brown lung tissue biopsies ranging from 0.2-0.3 cm. The specimen is entirely submitted in cassette A1.(BLJ; 02/21/2021) . . BLJ/BLJ 02/21/2021 2305 Local . 02 Pathologist provided ICD-10: C34.02 . 02 CPT . 536317 Specimen Comment: A courtesy copy of this report has been sent to [phone], [phone] Specimen Comment: [id number] Specimen Comment: Report sent to / DR CALLOWAY Performed at: 01 [facility] [address], [place], [place] [id number] MD Pete Sandoval MD Phone: [phone] Performed at: 02 [facility] [address] [place], [place] [id number] MD Abraham Mclain MD Phone: [phone]
== END | disposition home or self-care (01) ==
LOC: SURG 09:56
PROVIDERS: ATTEND Internal Medicine Pulmonary Disease
DX: J98.4 Other disorders of lung (principal); C34.02 Malignant neoplasm of left main bronchus; E78.00 Pure hypercholesterolemia, unspecified; J44.9 Chronic obstructive pulmonary disease, unspecified; E11.9 Type 2 diabetes mellitus without complications; K21.9 Gastro-esophageal reflux disease without esophagitis; M19.90 Unspecified osteoarthritis, unspecified site; F41.9 Anxiety disorder, unspecified; F32.9 Major depressive disorder, single episode, unspecified; F17.210 Nicotine dependence, cigarettes, uncomplicated; Z79.84 Long term (current) use of oral hypoglycemic drugs; Z79.899 Other long term (current) drug therapy; Z98.890 Other specified postprocedural states
CPT/HCPCS: 31624; 31625; 36415; 85025; 87070; 87102; 87116; 87205; 88112; 88305; 94640; J2704; J3490; J7613; 31622; J0171

== ENCOUNTER → 2021-03-08 | Outpatient (CLI) | payer MEDICARE, OTHER ==
[2021-02-21 11:45] VITALS: BP 127/66
[~2021-03-08] MED LIST changes: -ALBUTEROL SULFATE 2.5 MG/3 ML NEBU. NEB PRN; -EPINEPHrine 1 MG/ML VIAL INJ PRN; -EPINEPHrine 1 MG/ML VIAL ONE; -HYDROmorphone 2 MG/ML VIAL IVP PRN; -IV RINGERS,LACTATED 1000ML 1,000 ML IV SCH; -LIDOCAINE 1% Multi-Dose 20 ML VIAL. INJ PRN; -LIDOCAINE 1% Multi-Dose 20 ML VIAL. ONE; -LIDOCAINE 2% PF 5 ML VIAL. ONE; -LIDOCAINE 2% VISCOUS 100 ML BOTTLE. MM PRN; -LIDOCAINE 2% VISCOUS 100 ML BOTTLE. ONE; -LIDOCAINE 4% TOPICAL 50 ML SOLUTION. MM PRN; -LIDOCAINE 4% TOPICAL 50 ML SOLUTION. ONE; -MORPHINE SULFATE 2 MG/ML INJ. IVP PRN; -PROCHLORPERAZINE 10 MG/2 ML VIAL. IVP PRN; -PROPOFOL 10 MG/ML (20ML) VIAL. IV ONE; -fentaNYL PF VIAL 100 MCG/2 ML VIAL IVP PRN
--- NOTE | 2021-03-08 14:01 | RAD ---
EXAMINATION: NM PET/CT SKULL BASE TO MID THIGH CLINICAL HISTORY: Left perihilar squamous cell lung cancer TECHNIQUE: Approximately 60 minutes following the IV administration of F-18 FDG (12.08 mCi of F-18 FD G), PET and non contrast CT images were acquired from the skull base through th mid thighs. PET image s were reconstructed with and without attenuation correction using attenuation coefficients. CT image s obtained for attenuation correction and anatomic localization, they are not of diagnostic quality a nd are not intended to diagnose disease independently of the PET. - Blood Glucose: 113 mg/dL CT Dose Reduction Employed: One or more of the following individualized dose reduction techniques wer e utilized for this examination: 1. Automated exposure control 2. Adjustment of the mA and/or kV ac cording to patient size 3. Use of iterative reconstruction technique. COMPARISON: CT chest 02/07/2021 FINDINGS: NECK: No suspicious FDG avid focus or FDG avid lymphadenopathy visualized. Diffuse mild uptake in the thyro id gland with Max SUV 2.8, nonspecific but likely benign. CHEST: Left parahilar mass with invasion/obstruction of the left mainstem bronchus. Associated 2.7 x 2.3 cm focus of avid uptake with Max SUV 15.2. Interval marked atelectasis in the left lung with irregular b ronchiectasis containing scattered debris. Moderate left pleural effusion. Moderate mediastinal shift to the left. 9 mm pulmonary nodule in the right upper lobe demonstrating mild uptake with Max SUV 2. 8. Similar-appearing chronic changes in the right lung including upper lobe predominant paraseptal em physema. Redemonstration of multiple prominent mediastinal lymph nodes mild uptake, for example 8mm n ode at station 2R with Max SUV 2.7 (series 603 image 49). ABDOMEN/PELVIS: No suspicious FDG avid focus or FDG avid lymphadenopathy visualized. Moderate hiatal hernia. EXTREMITIES/SKELETON: No suspicious FDG avid focus visualized. IMPRESSION: FDG avid left parahilar mass with invasion/obstruction of the left mainstem bronchus and interval mar ked atelectasis in the left lung as described. 9 mm pulmonary nodule in the right upper lobe with mild FDG uptake. Mild edide uptake in the mediastinum. No evidence of extrathoracic suspicious FDG avid focus. Electronically signed by: Foster Torres DO (03/08/2021 1:59 PM) [id number]
== END ==
LOC: PETSC 08:01
PROVIDERS: ATTEND Internal Medicine Pulmonary Disease
DX: C34.92 Malignant neoplasm of unspecified part of left bronchus or lung (principal); R91.1 Solitary pulmonary nodule; J90 Pleural effusion, not elsewhere classified; J98.11 Atelectasis; J47.9 Bronchiectasis, uncomplicated; K44.9 Diaphragmatic hernia without obstruction or gangrene; R93.89 Abnormal findings on diagnostic imaging of other specified body structures
CPT/HCPCS: 78815; A9552

== ENCOUNTER → 2021-03-20 | Outpatient (CLI) | payer MEDICARE, OTHER ==
[2021-02-21 11:45] VITALS: BP 127/66
[2021-03-20 11:15] LABS: BASO % 0 % (0-3); EOS # 0.1 x10^3/uL (0.0-0.7); EOS % 2 % (0-3); HEMATOCRIT 36.1 % (39.0-53.0); HEMOGLOBIN 11.7 g/dL (13.0-17.5); LYMPH # 1.7 x10^3/uL (1.0-4.8); LYMPH % 26 % (24-48); MEAN CORPUSCULAR HEMOGLOBIN 29 pg (25-35); MEAN CORPUSCULAR HGB CONC 32 g/dL (31-37); MEAN CORPUSCULAR VOLUME 88 fL (79-100); MONO # 0.6 x10^3/uL (0.0-1.1); MONO % 9 % (0-9); NEUT # 4.1 x10^3/uL (1.8-7.7); NEUT % 63 % (31-73); PLATELET COUNT 570 x10^3/uL (140-400); RED BLOOD COUNT 4.09 x10^6/uL (4.30-5.70); RED CELL DISTRIBUTION WIDTH 16.6 % (11.5-14.5); WHITE BLOOD COUNT 6.5 x10^3/uL (4.0-11.0)
[2021-03-20 11:40] LABS: CALCIUM 9.5 mg/dL (8.5-10.1); CREATININE 1.1 mg/dL (0.7-1.3); GFR 82.9; POTASSIUM 3.7 mmol/L (3.5-5.1)
[2021-03-20 11:46] LABS: ALBUMIN 2.8 g/dL (3.4-5.0); ALBUMIN/GLOBULIN RATIO 0.5 (1.0-1.7); TOTAL BILIRUBIN 0.2 mg/dL (0.2-1.0)
== END ==
LOC: ONCLAB 10:34
PROVIDERS: ATTEND Internal Medicine Hematology & Oncology
DX: C34.12 Malignant neoplasm of upper lobe, left bronchus or lung (principal)
CPT/HCPCS: 36415; 80053; 85025

== ENCOUNTER → 2021-03-25 | Outpatient (CLI) | payer MEDICARE, OTHER ==
[2021-02-21 11:45] VITALS: BP 127/66
[~2021-03-25] MED LIST changes: +GADOTERATE 5 MMOL/10ML VIAL. IVP ONE
--- NOTE | 2021-03-25 10:58 | RAD ---
MRI of the Brain without and with Contrast 03/25/2021 Clinical History: Lung cancer. Technique: Unenhanced T1-weighted sagittal and axial and FLAIR, T2-weighted, gradient echo and diffus ion-weighted axial images of the brain were obtained. After the intravenous administration of 10 cc o f Clariscan, enhanced T1-weighted axial, sagittal and coronal images of the brain were obtained. Findings: Comparison is made to the patient's PET/CT scan dated 02/26/2021. The ventricles and sulci are within normal limits in size and configuration. Patchy and several small scattered areas of increased signal intensity are seen within the periventricular and subcortical wh ite matter of both cerebral hemispheres on the FLAIR and T2-weighted images consistent with areas of mild small vessel ischemic disease. No acute parenchymal abnormality is seen. No extra-axial fluid co llection is noted. There is no area of abnormal contrast enhancement. There is no MRI evidence of acu te ischemia/infarction. Mild mucosal thickening is seen scattered throughout the paranasal sinuses. There are small to modera te-sized mastoid effusions, left greater than right. Normal flow voids are seen within the major vasc ular structures surrounding the brain parenchyma. IMPRESSION: No acute parenchymal abnormality is seen. There is no MRI evidence of metastatic disease involving the brain parenchyma. Electronically signed by: Jose Rausch MD (03/25/2021 10:55 AM) [id number]
== END ==
LOC: MRI 08:18
PROVIDERS: ATTEND Internal Medicine Hematology & Oncology
DX: C34.12 Malignant neoplasm of upper lobe, left bronchus or lung (principal); H74.8X3 Other specified disorders of middle ear and mastoid, bilateral
CPT/HCPCS: 70553; A9575

== ENCOUNTER 2021-03-26 08:26 | Outpatient (CLI) | payer MEDICARE, OTHER ==
[~2021-03-26] VITALS: Ht 154.9 cm; Wt 50.9 kg
[2021-03-26] VITALS (7 sets, daily range): BP systolic 114–133; BP diastolic 51–77
[~2021-03-26 08:26] MED LIST changes: -GADOTERATE 5 MMOL/10ML VIAL. IVP ONE
[2021-03-26 09:10] LABS: BASO # 0.1 x10^3/uL (0.0-0.2); BASO % 1 % (0-3); EOS # 0.2 x10^3/uL (0.0-0.7); EOS % 2 % (0-3); HEMATOCRIT 36.5 % (39.0-53.0); HEMOGLOBIN 11.9 g/dL (13.0-17.5); LYMPH # 2.1 x10^3/uL (1.0-4.8); LYMPH % 28 % (24-48); MEAN CORPUSCULAR HEMOGLOBIN 29 pg (25-35); MEAN CORPUSCULAR HGB CONC 33 g/dL (31-37); MEAN CORPUSCULAR VOLUME 88 fL (79-100); MONO # 0.7 x10^3/uL (0.0-1.1); MONO % 9 % (0-9); NEUT # 4.4 x10^3/uL (1.8-7.7); NEUT % 60 % (31-73); PLATELET COUNT 449 x10^3/uL (140-400); RED BLOOD COUNT 4.16 x10^6/uL (4.30-5.70); RED CELL DISTRIBUTION WIDTH 17.1 % (11.5-14.5); WHITE BLOOD COUNT 7.4 x10^3/uL (4.0-11.0)
[2021-03-26] MEDS ORDERED: LIDOCAINE 1%/EPI 1:100,000 20 ML VIAL. ONE (09:13)
[2021-03-26] MEDS ORDERED: fentaNYL PF VIAL 100 MCG/2 ML VIAL ONE (09:49)
[2021-03-26] MEDS ORDERED: ceFAZolin SODIUM IV Push 1 GM VIAL. IVP ONE ×2 (09:49→10:15)
[2021-03-26] MEDS ORDERED: MIDAZOLAM HCL/PF 2 MG/2 ML VIAL. ONE (09:49)
[2021-03-26] MEDS ORDERED: LIDOCAINE 1%/EPI 1:100,000 20 ML VIAL. INJ ONE (10:15)
[2021-03-26] MEDS ORDERED: MIDAZOLAM HCL/PF 2 MG/2 ML VIAL. IV ONE (10:15)
[2021-03-26] MEDS ORDERED: fentaNYL PF VIAL 100 MCG/2 ML VIAL IV ONE (10:15)
--- NOTE | 2021-03-26 12:00 | NUR ---
DISCHARGE INSTRUCTIONS REVIEWED WITH PT AND PATIENT'S CAREGIVERS. VSS. NO COMPLAINTS. RIGHT FOREARM PIV DC'D, NO COMPLICATIONS. RIGHT CHEST DRESSING REMAINED C/D/.
--- NOTE | 2021-03-26 12:39 | RAD ---
PROCEDURE: Fluoroscopically and ultrasound-guided placement of right internal jugular tunnel central venous catheter with port Clinical Indication: Long-term central venous access for chemotherapy Discussion: The risks and benefits of the procedure were discussed with the patient and/or their parts counter representative. Informed consent was obtained. The patient was brought to the fluoroscopy suite and placed in supine position. A time out procedure was performed. The right neck and chest were prepped and draped using maximum sterile barrier technique including th e use of: Current guideline approved cutaneous antisepsis, a large sterile sheet to establish a steri le field. Additionally the paper goods machine set up operator wore a hat, mask, sterile gloves, a sterile gown during the proce dure as well as practiced acceptable hand hygiene prior to placing the port. Ultrasound-guided access: Ultrasound evaluation showed the right jugular vein to be patent and compr essible. 1 % lidocaine with epinephrine was administered to the skin and subcutaneous tissues overlyi ng the right neck and chest. Under direct ultrasound guidance a single wall puncture was made followe d by tract dilation and placement of a sheath. An ultrasound image was saved and sent to PACS. Next, an incision was made in an infraclavicular location and a pocket created. The catheter was tunneled between the pocket and the venotomy site. The catheter was advanced through the peel away sheath, u nder fluoroscopic guidance, such that it's tip was in the mid right atrium. The catheter was connecte d to the port reservoir. The port was accessed and found to flush and aspirate normally. The reservoi r was then placed into the subcutaneous pocket. The wound was closed in layers using 3 Vicryl and 4- 0 Vicryl suture. Dermabond was applied overlying the wound, and venotomy site. The patient tolerated procedure without immediate complication. Sedation: Conscious sedation was performed for 38 minutes. Sedation was carried out using a combinat ion of mg versed and micrograms fentanyl while the patient was continually monitored by a member of [facility] Radiology nursing staff. Continual cardiopulmonary monitoring was carried out during the procedur e. The patient tolerated the procedure well and there were no immediate complications. Fluoroscopy time: 0.4 mins Dose area product 1 Gycm2 Impression: Successful ultrasound and fluoroscopically guided placement of right internal jugular cindy migel central venous catheter with port Electronically signed by: Christ Plata MD (03/26/2021 12:36 PM) [id number]
--- NOTE | 2021-03-26 12:39 | RAD ---
PROCEDURE: Fluoroscopically and ultrasound-guided placement of right internal jugular tunnel central venous catheter with port Clinical Indication: Long-term central venous access for chemotherapy Discussion: The risks and benefits of the procedure were discussed with the patient and/or their risk control field representative. Informed consent was obtained. The patient was brought to the fluoroscopy suite and placed in supine position. A time out procedure was performed. The right neck and chest were prepped and draped using maximum sterile barrier technique including th e use of: Current guideline approved cutaneous antisepsis, a large sterile sheet to establish a steri le field. Additionally the dye house wheel operator wore a hat, mask, sterile gloves, a sterile gown during the proce dure as well as practiced acceptable hand hygiene prior to placing the port. Ultrasound-guided access: Ultrasound evaluation showed the right jugular vein to be patent and compr essible. 1 % lidocaine with epinephrine was administered to the skin and subcutaneous tissues overlyi ng the right neck and chest. Under direct ultrasound guidance a single wall puncture was made followe d by tract dilation and placement of a sheath. An ultrasound image was saved and sent to PACS. Next, an incision was made in an infraclavicular location and a pocket created. The catheter was tunneled between the pocket and the venotomy site. The catheter was advanced through the peel away sheath, u nder fluoroscopic guidance, such that it's tip was in the mid right atrium. The catheter was connecte d to the port reservoir. The port was accessed and found to flush and aspirate normally. The reservoi r was then placed into the subcutaneous pocket. The wound was closed in layers using 3 Vicryl and 4- 0 Vicryl suture. Dermabond was applied overlying the wound, and venotomy site. The patient tolerated procedure without immediate complication. Sedation: Conscious sedation was performed for 38 minutes. Sedation was carried out using a combinat ion of mg versed and micrograms fentanyl while the patient was continually monitored by a member of [facility] Radiology nursing staff. Continual cardiopulmonary monitoring was carried out during the procedur e. The patient tolerated the procedure well and there were no immediate complications. Fluoroscopy time: 0.4 mins Dose area product 1 Gycm2 Impression: Successful ultrasound and fluoroscopically guided placement of right internal jugular cindy migel central venous catheter with port Electronically signed by: Christ Plata MD (03/26/2021 12:36 PM) [id number]
--- NOTE | 2021-03-28 09:13 | RAD ---
Procedure: Ultrasound and fluoroscopically guided placement of right internal jugular power port.. 03/28/2021 7:09 AM Clinical Indication: LUNG CANCER Sedation: Conscious sedation was administered for 30 minutes. The patient was monitored by a qualified independent observer throughout the time of sedation. Please refer to the medical record for exact doses of medications utilized to achieve moderate sedation. Fluoroscopy time: 1 minutes Dose area product: 4 Gycm2 Consent: The procedure was explained in its entirety to the patient or the patients designated direct marketing representative by a member of the treatment team, including a discussion of the risks, benefits and commonly accepted alternatives to the procedure, as well as the expected consequences of no therapy whatsoever. Discussion of the risks included, but was not limited to, those that are most frequent and those that are rare but possibly severe or life-threatening, as well as the possibility of unforeseen complications. Technique and Findings: All elements of maximal sterile barrier technique including the use of a cap, mask, sterile gown, sterile gloves, large sterile sheet, appropriate hand hygiene, and 2% chlorhexidine for cutaneous antisepsis (or acceptable alternative antiseptic per current guidelines) were followed for this procedure. Following informed consent, and a timeout procedure, the patient was prepped and draped in the usual sterile fashion. Ultrasound interrogation of the right neck revealed patency and compressibility of the right internal jugular vein. A 21-gauge micropuncture was then used to gain access to this vein under ultrasound guidance. A hard copy ultrasound image was recorded. The needle was exchanged over a wire for a sheath. A 1 inch incision was made several centimeters inferior to the venotomy site. A catheter was tunneled from this site dermatotomy site in the neck. Catheter was advanced through peel-away sheath such that its tip was in the proximal right atrium with the patient supine. The catheter was trimmed to length and connected to the port reservoir. The port was found to flush and aspirate normally. The wound was closed in layers using 4-0 Vicryl suture. Sterile dressings were applied. Impression: Successful ultrasound and fluoroscopically guided placement of a right internal jugular PowerPort
== END 2021-03-26 12:58 | disposition home or self-care (01) ==
LOC: INTRAD 08:26
PROVIDERS: ATTEND Internal Medicine Hematology & Oncology
DX: Z45.2 Encounter for adjustment and management of vascular access device (principal); C34.32 Malignant neoplasm of lower lobe, left bronchus or lung; E78.00 Pure hypercholesterolemia, unspecified; K21.9 Gastro-esophageal reflux disease without esophagitis; J44.9 Chronic obstructive pulmonary disease, unspecified; M19.90 Unspecified osteoarthritis, unspecified site; E11.9 Type 2 diabetes mellitus without complications; F41.9 Anxiety disorder, unspecified; F32.9 Major depressive disorder, single episode, unspecified; F17.210 Nicotine dependence, cigarettes, uncomplicated; Z79.899 Other long term (current) drug therapy; Z98.890 Other specified postprocedural states; Z72.89 Other problems related to lifestyle; Z20.822 Contact with and (suspected) exposure to COVID-19
CPT/HCPCS: 36415; 36561; 76937; 77001; 85025; 87426; 99152; 99153; C1788; C1892; J0690; J2250; J3490

== ENCOUNTER → 2021-03-28 | Outpatient (CLI) | payer MEDICARE, OTHER ==
[2021-03-26 11:55] VITALS: BP 114/59
[2021-03-28 10:26] LABS: BASO % 0 % (0-3); EOS # 0.1 x10^3/uL (0.0-0.7); EOS % 1 % (0-3); HEMATOCRIT 34.7 % (39.0-53.0); HEMOGLOBIN 11.5 g/dL (13.0-17.5); LYMPH # 1.5 x10^3/uL (1.0-4.8); LYMPH % 21 % (24-48); MEAN CORPUSCULAR HEMOGLOBIN 29 pg (25-35); MEAN CORPUSCULAR HGB CONC 33 g/dL (31-37); MEAN CORPUSCULAR VOLUME 86 fL (79-100); MONO # 0.7 x10^3/uL (0.0-1.1); MONO % 10 % (0-9); NEUT # 4.8 x10^3/uL (1.8-7.7); NEUT % 67 % (31-73); PLATELET COUNT 424 x10^3/uL (140-400); RED BLOOD COUNT 4.02 x10^6/uL (4.30-5.70); RED CELL DISTRIBUTION WIDTH 16.9 % (11.5-14.5); WHITE BLOOD COUNT 7.2 x10^3/uL (4.0-11.0)
[2021-03-28 10:36] LABS: CALCIUM 9.2 mg/dL (8.5-10.1); CREATININE 1.1 mg/dL (0.7-1.3); GFR 82.9; POTASSIUM 3.6 mmol/L (3.5-5.1)
[2021-03-28 10:52] LABS: ALBUMIN 2.8 g/dL (3.4-5.0); ALBUMIN/GLOBULIN RATIO 0.6 (1.0-1.7); TOTAL BILIRUBIN 0.5 mg/dL (0.2-1.0); TOTAL PROTEIN 7.8 g/dL (6.4-8.2)
== END ==
LOC: ONCLAB 08:56
PROVIDERS: ATTEND Internal Medicine Hematology & Oncology
DX: C34.12 Malignant neoplasm of upper lobe, left bronchus or lung (principal); E03.2 Hypothyroidism due to medicaments and other exogenous substances
CPT/HCPCS: 36415; 80053; 82607; 82728; 82746; 83540; 83550; 84443; 85025

== ENCOUNTER → 2021-04-04 | Outpatient (CLI) | payer MEDICARE, OTHER ==
[2021-03-26 11:55] VITALS: BP 114/59
[2021-04-04 09:07] LABS: BASO % 0 % (0-3); EOS # 0.2 x10^3/uL (0.0-0.7); EOS % 2 % (0-3); HEMATOCRIT 34.4 % (39.0-53.0); HEMOGLOBIN 11.5 g/dL (13.0-17.5); LYMPH % 14 % (24-48); MEAN CORPUSCULAR HEMOGLOBIN 29 pg (25-35); MEAN CORPUSCULAR HGB CONC 33 g/dL (31-37); MEAN CORPUSCULAR VOLUME 87 fL (79-100); MONO # 0.7 x10^3/uL (0.0-1.1); MONO % 10 % (0-9); NEUT # 5.3 x10^3/uL (1.8-7.7); NEUT % 74 % (31-73); PLATELET COUNT 427 x10^3/uL (140-400); RED BLOOD COUNT 3.97 x10^6/uL (4.30-5.70); RED CELL DISTRIBUTION WIDTH 16.9 % (11.5-14.5); WHITE BLOOD COUNT 7.1 x10^3/uL (4.0-11.0)
[2021-04-04 09:44] LABS: CALCIUM 9.3 mg/dL (8.5-10.1); GFR 92.5; POTASSIUM 4.1 mmol/L (3.5-5.1)
[2021-04-04 09:48] LABS: ALBUMIN/GLOBULIN RATIO 0.6 (1.0-1.7); TOTAL BILIRUBIN 0.4 mg/dL (0.2-1.0)
== END ==
LOC: ONCLAB 08:40
PROVIDERS: ATTEND Physician Assistant
DX: C34.12 Malignant neoplasm of upper lobe, left bronchus or lung (principal)
CPT/HCPCS: 36415; 80053; 85025

== ENCOUNTER → 2021-04-10 | Outpatient (CLI) | payer MEDICARE, OTHER ==
[2021-03-26 11:55] VITALS: BP 114/59
[2021-04-10 09:33] LABS: BASO % 0 % (0-3); EOS # 0.1 x10^3/uL (0.0-0.7); EOS % 2 % (0-3); HEMATOCRIT 32.8 % (39.0-53.0); HEMOGLOBIN 10.9 g/dL (13.0-17.5); LYMPH # 0.5 x10^3/uL (1.0-4.8); LYMPH % 8 % (24-48); MEAN CORPUSCULAR HEMOGLOBIN 29 pg (25-35); MEAN CORPUSCULAR HGB CONC 33 g/dL (31-37); MEAN CORPUSCULAR VOLUME 87 fL (79-100); MONO # 0.7 x10^3/uL (0.0-1.1); MONO % 11 % (0-9); NEUT # 4.7 x10^3/uL (1.8-7.7); NEUT % 79 % (31-73); PLATELET COUNT 476 x10^3/uL (140-400); RED BLOOD COUNT 3.77 x10^6/uL (4.30-5.70); RED CELL DISTRIBUTION WIDTH 17.3 % (11.5-14.5); WHITE BLOOD COUNT 5.9 x10^3/uL (4.0-11.0)
[2021-04-10 09:46] LABS: CALCIUM 9.2 mg/dL (8.5-10.1); GFR 92.5; POTASSIUM 4.2 mmol/L (3.5-5.1)
[2021-04-10 09:52] LABS: ALBUMIN 2.9 g/dL (3.4-5.0); ALBUMIN/GLOBULIN RATIO 0.6 (1.0-1.7); TOTAL BILIRUBIN 0.4 mg/dL (0.2-1.0); TOTAL PROTEIN 7.6 g/dL (6.4-8.2)
== END ==
LOC: ONCLAB 09:14
PROVIDERS: ATTEND Physician Assistant
DX: C34.12 Malignant neoplasm of upper lobe, left bronchus or lung (principal)
CPT/HCPCS: 36415; 80053; 85025

== ENCOUNTER → 2021-04-17 | Outpatient (CLI) | payer MEDICARE, OTHER ==
[2021-03-26 11:55] VITALS: BP 114/59
[2021-04-17 09:52] LABS: BASO % 0 % (0-3); EOS # 0.1 x10^3/uL (0.0-0.7); EOS % 1 % (0-3); HEMATOCRIT 33.4 % (39.0-53.0); LYMPH # 0.6 x10^3/uL (1.0-4.8); LYMPH % 14 % (24-48); MEAN CORPUSCULAR HEMOGLOBIN 29 pg (25-35); MEAN CORPUSCULAR HGB CONC 33 g/dL (31-37); MEAN CORPUSCULAR VOLUME 88 fL (79-100); MONO # 0.6 x10^3/uL (0.0-1.1); MONO % 15 % (0-9); NEUT # 3.1 x10^3/uL (1.8-7.7); NEUT % 70 % (31-73); PLATELET COUNT 478 x10^3/uL (140-400); RED CELL DISTRIBUTION WIDTH 17.6 % (11.5-14.5); WHITE BLOOD COUNT 4.5 x10^3/uL (4.0-11.0)
[2021-04-17 09:59] LABS: CREATININE 0.9 mg/dL (0.7-1.3); GFR 104.5
[2021-04-17 10:05] LABS: ALBUMIN 2.9 g/dL (3.4-5.0); ALBUMIN/GLOBULIN RATIO 0.7 (1.0-1.7); TOTAL BILIRUBIN 0.3 mg/dL (0.2-1.0); TOTAL PROTEIN 7.1 g/dL (6.4-8.2)
== END ==
LOC: ONCLAB 09:19
PROVIDERS: ATTEND Internal Medicine Hematology & Oncology
DX: C34.12 Malignant neoplasm of upper lobe, left bronchus or lung (principal)
CPT/HCPCS: 36415; 80053; 85025

== ENCOUNTER → 2021-04-17 | Outpatient (CLI) | payer MEDICARE, OTHER ==
[2021-03-26 11:55] VITALS: BP 114/59
--- NOTE | 2021-04-17 10:46 | RAD ---
EXAM: Chest, 2 views. HISTORY: Lung cancer. COMPARISON: 01/29/2021 FINDINGS: 2 views of the chest are obtained. There is stable left hemithorax volume loss and slight l eftward mediastinal shift. There are stable chronic appearing interstitial changes. The heart is stab le in size. There is a right port catheter with the tip overlying the superior right atrium. IMPRESSION: 1. Slight left hemithorax volume loss due to partial lung resection. 2. Stable chronic appearing interstitial changes. Electronically signed by: Cindy Samano MD (04/17/2021 10:43 AM) [id number]
== END ==
LOC: RAD 10:08
PROVIDERS: ATTEND Radiology Radiation Oncology
DX: C34.12 Malignant neoplasm of upper lobe, left bronchus or lung (principal); R93.89 Abnormal findings on diagnostic imaging of other specified body structures
CPT/HCPCS: 71046

== ENCOUNTER → 2021-04-24 | Outpatient (CLI) | payer MEDICARE, OTHER ==
[2021-03-26 11:55] VITALS: BP 114/59
[2021-04-24 09:57] LABS: BASO % 0 % (0-3); EOS % 1 % (0-3); HEMATOCRIT 33.7 % (39.0-53.0); HEMOGLOBIN 11.2 g/dL (13.0-17.5); LYMPH # 0.4 x10^3/uL (1.0-4.8); LYMPH % 10 % (24-48); MEAN CORPUSCULAR HEMOGLOBIN 29 pg (25-35); MEAN CORPUSCULAR HGB CONC 33 g/dL (31-37); MEAN CORPUSCULAR VOLUME 88 fL (79-100); MONO # 0.4 x10^3/uL (0.0-1.1); MONO % 10 % (0-9); NEUT # 3.3 x10^3/uL (1.8-7.7); NEUT % 79 % (31-73); PLATELET COUNT 328 x10^3/uL (140-400); RED BLOOD COUNT 3.82 x10^6/uL (4.30-5.70); RED CELL DISTRIBUTION WIDTH 18.1 % (11.5-14.5); WHITE BLOOD COUNT 4.1 x10^3/uL (4.0-11.0)
[2021-04-24 10:07] LABS: CALCIUM 8.9 mg/dL (8.5-10.1); GFR 92.5; POTASSIUM 4.1 mmol/L (3.5-5.1)
[2021-04-24 10:12] LABS: ALBUMIN 2.8 g/dL (3.4-5.0); ALBUMIN/GLOBULIN RATIO 0.7 (1.0-1.7); TOTAL BILIRUBIN 0.4 mg/dL (0.2-1.0); TOTAL PROTEIN 6.9 g/dL (6.4-8.2)
== END ==
LOC: ONCLAB 09:20
PROVIDERS: ATTEND Physician Assistant
DX: C34.12 Malignant neoplasm of upper lobe, left bronchus or lung (principal)
CPT/HCPCS: 36415; 80053; 85025

== ENCOUNTER → 2021-05-01 | Outpatient (CLI) | payer MEDICARE, OTHER ==
[2021-03-26 11:55] VITALS: BP 114/59
[2021-05-01 09:50] LABS: BASO % 0 % (0-3); EOS % 1 % (0-3); HEMATOCRIT 31.9 % (39.0-53.0); HEMOGLOBIN 10.9 g/dL (13.0-17.5); LYMPH # 0.3 x10^3/uL (1.0-4.8); LYMPH % 10 % (24-48); MEAN CORPUSCULAR HEMOGLOBIN 30 pg (25-35); MEAN CORPUSCULAR HGB CONC 34 g/dL (31-37); MEAN CORPUSCULAR VOLUME 88 fL (79-100); MONO # 0.4 x10^3/uL (0.0-1.1); MONO % 12 % (0-9); NEUT # 2.7 x10^3/uL (1.8-7.7); NEUT % 78 % (31-73); PLATELET COUNT 231 x10^3/uL (140-400); RED BLOOD COUNT 3.62 x10^6/uL (4.30-5.70); RED CELL DISTRIBUTION WIDTH 18.1 % (11.5-14.5); WHITE BLOOD COUNT 3.5 x10^3/uL (4.0-11.0)
[2021-05-01 09:55] LABS: CALCIUM 8.4 mg/dL (8.5-10.1); GFR 92.5; POTASSIUM 4.2 mmol/L (3.5-5.1)
[2021-05-01 10:04] LABS: ALBUMIN 2.8 g/dL (3.4-5.0); ALBUMIN/GLOBULIN RATIO 0.7 (1.0-1.7); TOTAL BILIRUBIN 0.5 mg/dL (0.2-1.0); TOTAL PROTEIN 6.8 g/dL (6.4-8.2)
[2021-05-01 10:53] LABS: % BANDS 4 % (0-9); % LYMPHS 12 % (24-48); % MONOS 5 % (0-10); % SEGS 79 % (35-66); PLT ESTIMATE ADEQUATE (ADEQUATE)
== END ==
LOC: ONCLAB 08:57
PROVIDERS: ATTEND Physician Assistant
DX: C34.12 Malignant neoplasm of upper lobe, left bronchus or lung (principal)
CPT/HCPCS: 36415; 80053; 85007; 85025

== ENCOUNTER → 2021-05-08 | Outpatient (CLI) | payer MEDICARE, OTHER ==
[2021-03-26 11:55] VITALS: BP 114/59
[2021-05-08 09:47] LABS: BASO % 0 % (0-3); EOS % 0 % (0-3); HEMATOCRIT 31.5 % (39.0-53.0); HEMOGLOBIN 10.6 g/dL (13.0-17.5); LYMPH # 0.4 x10^3/uL (1.0-4.8); LYMPH % 9 % (24-48); MEAN CORPUSCULAR HEMOGLOBIN 30 pg (25-35); MEAN CORPUSCULAR HGB CONC 34 g/dL (31-37); MEAN CORPUSCULAR VOLUME 89 fL (79-100); MONO # 0.6 x10^3/uL (0.0-1.1); MONO % 15 % (0-9); NEUT # 3.2 x10^3/uL (1.8-7.7); NEUT % 75 % (31-73); PLATELET COUNT 307 x10^3/uL (140-400); RED BLOOD COUNT 3.56 x10^6/uL (4.30-5.70); RED CELL DISTRIBUTION WIDTH 18.8 % (11.5-14.5); WHITE BLOOD COUNT 4.2 x10^3/uL (4.0-11.0)
[2021-05-08 09:58] LABS: CALCIUM 8.9 mg/dL (8.5-10.1); GFR 92.5; POTASSIUM 4.4 mmol/L (3.5-5.1)
[2021-05-08 10:05] LABS: ALBUMIN 2.8 g/dL (3.4-5.0); ALBUMIN/GLOBULIN RATIO 0.6 (1.0-1.7); TOTAL BILIRUBIN 0.9 mg/dL (0.2-1.0); TOTAL PROTEIN 7.3 g/dL (6.4-8.2)
== END ==
LOC: ONCLAB 09:06
PROVIDERS: ATTEND Physician Assistant
DX: C34.12 Malignant neoplasm of upper lobe, left bronchus or lung (principal)
CPT/HCPCS: 36415; 80053; 85025

== ENCOUNTER → 2021-05-17 | Outpatient (CLI) | payer MEDICARE, OTHER ==
[2021-03-26 11:55] VITALS: BP 114/59
--- NOTE | 2021-05-17 17:22 | RAD ---
XR CHEST 2V History: Reason: SQUAMOUS CELL LUNG CANCER. COUGH / Spl. Instructions: / History: Comparison: April 17, 2021 Findings: Mild diffuse reticular interstitial thickening most prominent within the left medial lung. Right ches t wall port, unchanged. Unchanged heart size. No pleural effusion. No new consolidation. No pneumotho rax. Impression: 1. Stable chronic interstitial changes. No new consolidation. Electronically signed by: Cassius Chilel DO (05/17/2021 5:20 PM) [id number]
== END ==
LOC: RAD 12:17
PROVIDERS: ATTEND Internal Medicine Hematology & Oncology
DX: C34.12 Malignant neoplasm of upper lobe, left bronchus or lung (principal); R05 Cough
CPT/HCPCS: 71046

== ENCOUNTER → 2021-05-24 | Outpatient (CLI) | payer MEDICARE, OTHER ==
[2021-03-26 11:55] VITALS: BP 114/59
[2021-05-24 10:36] LABS: BASO % 1 % (0-3); EOS % 1 % (0-3); HEMATOCRIT 35.5 % (39.0-53.0); HEMOGLOBIN 11.8 g/dL (13.0-17.5); LYMPH % 28 % (24-48); MEAN CORPUSCULAR HEMOGLOBIN 30 pg (25-35); MEAN CORPUSCULAR HGB CONC 33 g/dL (31-37); MEAN CORPUSCULAR VOLUME 90 fL (79-100); MONO # 0.6 x10^3/uL (0.0-1.1); MONO % 18 % (0-9); NEUT # 1.9 x10^3/uL (1.8-7.7); NEUT % 53 % (31-73); PLATELET COUNT 569 x10^3/uL (140-400); RED BLOOD COUNT 3.94 x10^6/uL (4.30-5.70); RED CELL DISTRIBUTION WIDTH 20.5 % (11.5-14.5); WHITE BLOOD COUNT 3.6 x10^3/uL (4.0-11.0)
[2021-05-24 10:49] LABS: CALCIUM 9.6 mg/dL (8.5-10.1); CREATININE 1.1 mg/dL (0.7-1.3); GFR 82.6; POTASSIUM 4.4 mmol/L (3.5-5.1)
[2021-05-24 10:57] LABS: ALBUMIN/GLOBULIN RATIO 0.6 (1.0-1.7); TOTAL BILIRUBIN 0.2 mg/dL (0.2-1.0); TOTAL PROTEIN 8.2 g/dL (6.4-8.2)
[2021-05-24 12:17] LABS: PLT ESTIMATE INCREASED (ADEQUATE)
[2021-05-24 12:18] LABS: ANISOCYTOSIS MOD
== END ==
LOC: ONCLAB 09:32
PROVIDERS: ATTEND Internal Medicine Hematology & Oncology
DX: C34.12 Malignant neoplasm of upper lobe, left bronchus or lung (principal)
CPT/HCPCS: 36415; 80053; 85025

== ENCOUNTER → 2021-06-07 | Outpatient (CLI) | payer MEDICARE, OTHER ==
[2021-03-26 11:55] VITALS: BP 114/59
[2021-06-07 10:39] LABS: BASO # 0.1 x10^3/uL (0.0-0.2); BASO % 1 % (0-3); EOS # 0.1 x10^3/uL (0.0-0.7); EOS % 2 % (0-3); HEMATOCRIT 29.9 % (39.0-53.0); HEMOGLOBIN 9.9 g/dL (13.0-17.5); LYMPH # 1.9 x10^3/uL (1.0-4.8); LYMPH % 21 % (24-48); MEAN CORPUSCULAR HEMOGLOBIN 30 pg (25-35); MEAN CORPUSCULAR HGB CONC 33 g/dL (31-37); MEAN CORPUSCULAR VOLUME 89 fL (79-100); MONO # 1.1 x10^3/uL (0.0-1.1); MONO % 12 % (0-9); NEUT # 5.7 x10^3/uL (1.8-7.7); NEUT % 64 % (31-73); PLATELET COUNT 433 x10^3/uL (140-400); RED BLOOD COUNT 3.35 x10^6/uL (4.30-5.70); RED CELL DISTRIBUTION WIDTH 19.9 % (11.5-14.5)
[2021-06-07 11:07] LABS: ALBUMIN 2.4 g/dL (3.4-5.0); ALBUMIN/GLOBULIN RATIO 0.5 (1.0-1.7); CALCIUM 8.5 mg/dL (8.5-10.1); GFR 92.2; POTASSIUM 3.8 mmol/L (3.5-5.1); TOTAL BILIRUBIN 0.8 mg/dL (0.2-1.0); TOTAL PROTEIN 7.6 g/dL (6.4-8.2)
== END ==
LOC: ONCLAB 10:27
PROVIDERS: ATTEND Internal Medicine Hematology & Oncology
DX: C34.12 Malignant neoplasm of upper lobe, left bronchus or lung (principal)
CPT/HCPCS: 36415; 80053; 85025

== ENCOUNTER → 2021-06-07 | Outpatient (CLI) | payer MEDICARE, OTHER ==
[2021-03-26 11:55] VITALS: BP 114/59
[~2021-06-07] MED LIST changes: +IOHEXOL 300 MG/ML 100ML VIAL. IV ONE; +METH5TAB30 PO; -METH5TAB6 PO
--- NOTE | 2021-06-07 17:05 | RAD ---
EXAM: CT OF THE CHEST WITH CONTRAST. HISTORY: Squamous cell lung cancer. TECHNIQUE: Computed tomography of the chest was performed after the intravenous administration of iod inated contrast. One or more of the following individualized dose reduction techniques were utilized for this examination: 1. Automated exposure control. 2. Adjustment of the mA and/or kV according to patient size. 3. Use of iterative reconstruction technique. COMPARISON: 02/07/2021. FINDINGS: Images of the upper abdomen reveal a small hiatal hernia. Bone windows reveal no suspicious lesions. A lucent lesion within T9 is stable and most likely a benign hemangioma. The left mainstem bronchus remains occluded distally. The left upper lobe bronchi are filled with flu id. There is new consolidation inferiorly in the lingula, consistent with pneumonia. Previously noted infiltrates in the left lower lobe have improved but not completely resolved. A spiculated nodule in the right upper lobe on image 19 has decreased in size and now measures 6 mm a s compared with 8 mm previously. A 6 mm groundglass opacity on image 17 in the right upper lobe is ne w since the prior study and may be inflammatory. Another sclerotic focus within the right upper lobe adjacent to the major fissure is new and spans 2.5 x 1.0 cm. There are no pathologically enlarged mediastinal or axillary lymph nodes. There is a small left pleur al effusion. There is no pericardial effusion. The heart is not enlarged. Predominantly paraseptal emphysema is moderate. IMPRESSION: 1. Persistent occlusive mass involving the left mainstem bronchus distally. 2. Consolidation within the lingula is consistent with pneumonia. Infiltrates in the left lower lobe have improved. 3. Decreased right upper lobe nodule consistent with treatment response. 4. New scarlike mass within the right upper lobe more inferiorly. This may be postinflammatory but is indeterminate. Attention on further follow-up. 5. Small hiatal hernia. Findings suggesting distal esophagitis. Electronically signed by: Maru Ramires MD (06/07/2021 5:03 PM) [id number]
--- NOTE | 2021-06-07 17:06 | RAD ---
EXAM: CHEST 2 VIEWS. HISTORY: Squamous cell lung cancer. COMPARISON: 05/17/2021. FINDINGS: Frontal and lateral views of the chest are obtained. A right-sided port catheter has its ti p in the superior cavoatrial junction. Airspace opacities in the left base have increased and are consistent with pneumonia. Refer to today' s CT for more information. There is no pneumothorax or pleural effusion. The heart is not enlarged. T here is contrast within the kidneys from a prior procedure. IMPRESSION: 1. Airspace opacities in the left base have increased and are consistent with pneumonia. Refer to jose phipps's CT for more information. Electronically signed by: Maru Ramires MD (06/07/2021 5:03 PM) [id number]
== END ==
LOC: RAD 10:05
PROVIDERS: ATTEND Physician Assistant
DX: C34.12 Malignant neoplasm of upper lobe, left bronchus or lung (principal); R91.8 Other nonspecific abnormal finding of lung field; K44.9 Diaphragmatic hernia without obstruction or gangrene
CPT/HCPCS: 36415; 71046; 71260; 80053; 85025; Q9967

== ENCOUNTER → 2021-06-14 | Outpatient (CLI) | payer MEDICARE, OTHER ==
[2021-03-26 11:55] VITALS: BP 114/59
[~2021-06-14] MED LIST changes: -IOHEXOL 300 MG/ML 100ML VIAL. IV ONE; -METH5TAB30 PO; +METH5TAB6 PO
[2021-06-14 12:29] LABS: BASO % 0 % (0-3); EOS % 0 % (0-3); HEMATOCRIT 31.3 % (39.0-53.0); HEMOGLOBIN 9.9 g/dL (13.0-17.5); LYMPH # 0.6 x10^3/uL (1.0-4.8); LYMPH % 5 % (24-48); MEAN CORPUSCULAR HEMOGLOBIN 28 pg (25-35); MEAN CORPUSCULAR HGB CONC 32 g/dL (31-37); MEAN CORPUSCULAR VOLUME 90 fL (79-100); MONO # 0.5 x10^3/uL (0.0-1.1); MONO % 4 % (0-9); NEUT # 10.8 x10^3/uL (1.8-7.7); NEUT % 91 % (31-73); PLATELET COUNT 541 x10^3/uL (140-400); RED BLOOD COUNT 3.48 x10^6/uL (4.30-5.70); RED CELL DISTRIBUTION WIDTH 20.3 % (11.5-14.5); WHITE BLOOD COUNT 11.9 x10^3/uL (4.0-11.0)
[2021-06-14 12:41] LABS: CALCIUM 8.6 mg/dL (8.5-10.1); GFR 92.2; POTASSIUM 3.9 mmol/L (3.5-5.1)
[2021-06-14 12:51] LABS: ALBUMIN 2.5 g/dL (3.4-5.0); ALBUMIN/GLOBULIN RATIO 0.5 (1.0-1.7); TOTAL BILIRUBIN 0.2 mg/dL (0.2-1.0); TOTAL PROTEIN 7.3 g/dL (6.4-8.2)
[2021-06-14 13:18] LABS: % LYMPHS 4 % (24-48); % MONOS 3 % (0-10); % SEGS 93 % (35-66)
[2021-06-14 13:19] LABS: ANISOCYTOSIS MOD; PLT ESTIMATE INCREASED (ADEQUATE)
== END ==
LOC: ONCLAB 11:09
PROVIDERS: ATTEND Internal Medicine Hematology & Oncology
DX: C34.12 Malignant neoplasm of upper lobe, left bronchus or lung (principal)
CPT/HCPCS: 36415; 80053; 85007; 85025

== ENCOUNTER → 2021-06-27 | Outpatient (CLI) | payer MEDICARE, OTHER ==
[2021-03-26 11:55] VITALS: BP 114/59
[~2021-06-27] MED LIST changes: +METH5TAB30 PO; -METH5TAB6 PO
[2021-06-27 09:11] LABS: BASO % 0 % (0-3); EOS % 1 % (0-3); HEMATOCRIT 28.8 % (39.0-53.0); HEMOGLOBIN 9.5 g/dL (13.0-17.5); LYMPH # 0.8 x10^3/uL (1.0-4.8); LYMPH % 10 % (24-48); MEAN CORPUSCULAR HEMOGLOBIN 29 pg (25-35); MEAN CORPUSCULAR HGB CONC 33 g/dL (31-37); MEAN CORPUSCULAR VOLUME 89 fL (79-100); MONO # 0.9 x10^3/uL (0.0-1.1); MONO % 10 % (0-9); NEUT # 6.7 x10^3/uL (1.8-7.7); NEUT % 79 % (31-73); PLATELET COUNT 533 x10^3/uL (140-400); RED BLOOD COUNT 3.23 x10^6/uL (4.30-5.70); RED CELL DISTRIBUTION WIDTH 19.3 % (11.5-14.5); WHITE BLOOD COUNT 8.5 x10^3/uL (4.0-11.0)
[2021-06-27 09:19] LABS: CALCIUM 8.1 mg/dL (8.5-10.1); CREATININE 0.8 mg/dL (0.7-1.3); GFR 119.3; POTASSIUM 3.4 mmol/L (3.5-5.1)
[2021-06-27 09:25] LABS: ALBUMIN 2.1 g/dL (3.4-5.0); ALBUMIN/GLOBULIN RATIO 0.4 (1.0-1.7); TOTAL BILIRUBIN 0.4 mg/dL (0.2-1.0)
== END ==
LOC: ONCLAB 08:57
PROVIDERS: ATTEND Internal Medicine Hematology & Oncology
DX: C34.12 Malignant neoplasm of upper lobe, left bronchus or lung (principal)
CPT/HCPCS: 36415; 80053; 85025

== ENCOUNTER → 2021-07-11 | Outpatient (CLI) | payer MEDICARE, OTHER ==
[2021-03-26 11:55] VITALS: BP 114/59
[2021-07-11 09:00] LABS: GFR 92.2; POTASSIUM 3.9 mmol/L (3.5-5.1)
[2021-07-11 09:05] LABS: ALBUMIN 2.2 g/dL (3.4-5.0); ALBUMIN/GLOBULIN RATIO 0.4 (1.0-1.7); TOTAL BILIRUBIN 0.3 mg/dL (0.2-1.0); TOTAL PROTEIN 7.3 g/dL (6.4-8.2)
[2021-07-11 09:08] LABS: BASO % 0 % (0-3); EOS # 0.2 x10^3/uL (0.0-0.7); EOS % 3 % (0-3); HEMATOCRIT 28.7 % (39.0-53.0); HEMOGLOBIN 9.4 g/dL (13.0-17.5); LYMPH # 1.6 x10^3/uL (1.0-4.8); LYMPH % 22 % (24-48); MEAN CORPUSCULAR HEMOGLOBIN 29 pg (25-35); MEAN CORPUSCULAR HGB CONC 33 g/dL (31-37); MEAN CORPUSCULAR VOLUME 88 fL (79-100); MONO # 0.6 x10^3/uL (0.0-1.1); MONO % 8 % (0-9); NEUT # 4.9 x10^3/uL (1.8-7.7); NEUT % 67 % (31-73); PLATELET COUNT 751 x10^3/uL (140-400); RED BLOOD COUNT 3.27 x10^6/uL (4.30-5.70); RED CELL DISTRIBUTION WIDTH 18.1 % (11.5-14.5); WHITE BLOOD COUNT 7.4 x10^3/uL (4.0-11.0)
== END ==
LOC: ONCLAB 08:40
PROVIDERS: ATTEND Internal Medicine Hematology & Oncology
DX: C34.12 Malignant neoplasm of upper lobe, left bronchus or lung (principal)
CPT/HCPCS: 36415; 80053; 85025

== ENCOUNTER → 2021-07-25 | Outpatient (CLI) | payer MEDICARE, OTHER ==
[2021-03-26 11:55] VITALS: BP 114/59
[2021-07-25 09:30] LABS: BASO # 0.1 x10^3/uL (0.0-0.2); BASO % 1 % (0-3); EOS # 0.4 x10^3/uL (0.0-0.7); EOS % 7 % (0-3); HEMATOCRIT 31.2 % (39.0-53.0); HEMOGLOBIN 10.2 g/dL (13.0-17.5); LYMPH # 1.2 x10^3/uL (1.0-4.8); LYMPH % 21 % (24-48); MEAN CORPUSCULAR HEMOGLOBIN 28 pg (25-35); MEAN CORPUSCULAR HGB CONC 33 g/dL (31-37); MEAN CORPUSCULAR VOLUME 87 fL (79-100); MONO # 0.5 x10^3/uL (0.0-1.1); MONO % 9 % (0-9); NEUT # 3.6 x10^3/uL (1.8-7.7); NEUT % 62 % (31-73); PLATELET COUNT 522 x10^3/uL (140-400); RED BLOOD COUNT 3.59 x10^6/uL (4.30-5.70); RED CELL DISTRIBUTION WIDTH 17.9 % (11.5-14.5); WHITE BLOOD COUNT 5.8 x10^3/uL (4.0-11.0)
[2021-07-25 09:41] LABS: GFR 92.2; POTASSIUM 4.2 mmol/L (3.5-5.1)
[2021-07-25 09:46] LABS: ALBUMIN 2.5 g/dL (3.4-5.0); ALBUMIN/GLOBULIN RATIO 0.5 (1.0-1.7); TOTAL BILIRUBIN 0.2 mg/dL (0.2-1.0); TOTAL PROTEIN 7.5 g/dL (6.4-8.2)
== END ==
LOC: ONCLAB 09:16
PROVIDERS: ATTEND Internal Medicine Hematology & Oncology
DX: C34.12 Malignant neoplasm of upper lobe, left bronchus or lung (principal)
CPT/HCPCS: 36415; 80053; 85025

== ENCOUNTER → 2021-08-08 | Outpatient (CLI) | payer MEDICARE, OTHER ==
[2021-03-26 11:55] VITALS: BP 114/59
[2021-08-08 09:40] LABS: BASO % 0 % (0-3); EOS # 0.6 x10^3/uL (0.0-0.7); EOS % 10 % (0-3); HEMATOCRIT 33.7 % (39.0-53.0); HEMOGLOBIN 10.6 g/dL (13.0-17.5); LYMPH # 1.4 x10^3/uL (1.0-4.8); LYMPH % 23 % (24-48); MEAN CORPUSCULAR HEMOGLOBIN 27 pg (25-35); MEAN CORPUSCULAR HGB CONC 31 g/dL (31-37); MEAN CORPUSCULAR VOLUME 87 fL (79-100); MONO # 0.5 x10^3/uL (0.0-1.1); MONO % 8 % (0-9); NEUT # 3.5 x10^3/uL (1.8-7.7); NEUT % 59 % (31-73); PLATELET COUNT 408 x10^3/uL (140-400); RED BLOOD COUNT 3.86 x10^6/uL (4.30-5.70); RED CELL DISTRIBUTION WIDTH 18.2 % (11.5-14.5); WHITE BLOOD COUNT 5.9 x10^3/uL (4.0-11.0)
[2021-08-08 10:06] LABS: CALCIUM 8.9 mg/dL (8.5-10.1); CREATININE 0.9 mg/dL (0.7-1.3); GFR 104.2; POTASSIUM 3.2 mmol/L (3.5-5.1)
[2021-08-08 10:09] LABS: ALBUMIN 2.8 g/dL (3.4-5.0); ALBUMIN/GLOBULIN RATIO 0.6 (1.0-1.7); TOTAL BILIRUBIN 0.3 mg/dL (0.2-1.0); TOTAL PROTEIN 7.2 g/dL (6.4-8.2)
== END ==
LOC: ONCLAB 09:01
PROVIDERS: ATTEND Physician Assistant
DX: C34.12 Malignant neoplasm of upper lobe, left bronchus or lung (principal)
CPT/HCPCS: 36415; 80053; 85025

== ENCOUNTER → 2021-08-29 | Outpatient (CLI) | payer MEDICARE, OTHER ==
[2021-03-26 11:55] VITALS: BP 114/59
[2021-08-29 08:39] LABS: BASO % 1 % (0-3); EOS # 0.1 x10^3/uL (0.0-0.7); EOS % 3 % (0-3); HEMATOCRIT 33.7 % (39.0-53.0); HEMOGLOBIN 10.9 g/dL (13.0-17.5); LYMPH % 29 % (24-48); MEAN CORPUSCULAR HEMOGLOBIN 27 pg (25-35); MEAN CORPUSCULAR HGB CONC 32 g/dL (31-37); MEAN CORPUSCULAR VOLUME 84 fL (79-100); MONO # 0.3 x10^3/uL (0.0-1.1); MONO % 9 % (0-9); NEUT # 2.1 x10^3/uL (1.8-7.7); NEUT % 59 % (31-73); PLATELET COUNT 355 x10^3/uL (140-400); RED CELL DISTRIBUTION WIDTH 17.6 % (11.5-14.5); WHITE BLOOD COUNT 3.5 x10^3/uL (4.0-11.0)
[2021-08-29 09:03] LABS: CALCIUM 8.3 mg/dL (8.5-10.1); CREATININE 1.1 mg/dL (0.7-1.3); GFR 82.6; POTASSIUM 3.8 mmol/L (3.5-5.1)
[2021-08-29 09:10] LABS: ALBUMIN 2.5 g/dL (3.4-5.0); ALBUMIN/GLOBULIN RATIO 0.5 (1.0-1.7); TOTAL BILIRUBIN 0.4 mg/dL (0.2-1.0); TOTAL PROTEIN 7.1 g/dL (6.4-8.2)
== END ==
LOC: ONCLAB 08:27
PROVIDERS: ATTEND Internal Medicine Hematology & Oncology
DX: C34.12 Malignant neoplasm of upper lobe, left bronchus or lung (principal)
CPT/HCPCS: 36415; 80053; 85025

== ENCOUNTER → 2021-09-24 | Outpatient (CLI) | payer MEDICARE, OTHER ==
[2021-03-26 11:55] VITALS: BP 114/59
[2021-09-24 10:10] LABS: BASO % 1 % (0-3); EOS # 0.5 x10^3/uL (0.0-0.7); EOS % 7 % (0-3); HEMATOCRIT 34.6 % (39.0-53.0); LYMPH # 1.7 x10^3/uL (1.0-4.8); LYMPH % 27 % (24-48); MEAN CORPUSCULAR HEMOGLOBIN 27 pg (25-35); MEAN CORPUSCULAR HGB CONC 32 g/dL (31-37); MEAN CORPUSCULAR VOLUME 83 fL (79-100); MONO # 0.6 x10^3/uL (0.0-1.1); MONO % 9 % (0-9); NEUT # 3.5 x10^3/uL (1.8-7.7); NEUT % 56 % (31-73); PLATELET COUNT 460 x10^3/uL (140-400); RED BLOOD COUNT 4.16 x10^6/uL (4.30-5.70); RED CELL DISTRIBUTION WIDTH 17.8 % (11.5-14.5); WHITE BLOOD COUNT 6.3 x10^3/uL (4.0-11.0)
[2021-09-24 10:22] LABS: CALCIUM 8.9 mg/dL (8.5-10.1); CREATININE 1.1 mg/dL (0.7-1.3); GFR 82.6; POTASSIUM 3.9 mmol/L (3.5-5.1)
[2021-09-24 10:27] LABS: ALBUMIN 2.7 g/dL (3.4-5.0); ALBUMIN/GLOBULIN RATIO 0.6 (1.0-1.7); TOTAL BILIRUBIN 0.5 mg/dL (0.2-1.0); TOTAL PROTEIN 7.4 g/dL (6.4-8.2)
== END ==
LOC: ONCLAB 09:47
PROVIDERS: ATTEND Internal Medicine Hematology & Oncology
DX: C34.12 Malignant neoplasm of upper lobe, left bronchus or lung (principal)
CPT/HCPCS: 36415; 80053; 85025

== ENCOUNTER → 2021-09-27 | Outpatient (CLI) | payer MEDICARE, OTHER ==
[2021-03-26 11:55] VITALS: BP 114/59
[~2021-09-27] MED LIST changes: +IOHEXOL 300 MG/ML 100ML VIAL. IV ONE
--- NOTE | 2021-09-27 18:24 | RAD ---
EXAM: CT CHEST WITH CONTRAST HISTORY: Lung cancer COMPARISON: CT chest 06/07/2021 TECHNIQUE: Helical CT of the chest performed after administration of 75 mL Omnipaque 300 intravenous contrast. Coronal and sagittal reformats were obtained. One or more of the following individualized dose reduction techniques were utilized for this examinat ion: 1. Automated exposure control 2. Adjustment of the mA and/or kV according to patient size 3. Use of iterative reconstruction technique. FINDINGS: Thyroid gland and thoracic inlet: The thyroid gland is normal. Heart and great vessels: The heart is normal in size. No pericardial effusion. The thoracic aorta is normal in caliber. Mediastinum and maxwell: Ill-defined soft tissue at the left hilum appears decreased. No new lymphadenop athy. There is a small hiatal hernia and circumferential distal esophageal wall thickening. Lungs and pleura: There is decreased but persistent material in the left mainstem bronchus. Left lowe r lobe and lingular consolidations have resolved. There are persistent but decreased diffuse tree-in- bud nodules throughout the left lung. There are new patchy linear confluent opacities in the perihilar and suprahilar left upper lobe with some architectural distortion and adjacent pleural thickening, best appreciated on coronal images (im age 20-22, series 4). This could be due to treatment changes or residual malignancy. There is a new i ll-defined nodule at the apex measuring 1.4 x 0.5 cm (image 13, series 2) and additional new nodule i n the medial apex posterior to the descending aorta measures 5 mm. Ill-defined ground glass opacity measuring 2.3 x 0.8 cm along the posterior right upper lobe is uncha nged in size and slightly less distinct. A 7 mm groundglass nodule more superiorly in the right upper lobe is unchanged (image 22, series 2). The previously seen 6 mm groundglass nodule more posteriorly in the right upper lobe is no longer present. A few scattered small nodules elsewhere the right lung are unchanged. Paraseptal emphysema is unchanged. No pleural effusion. Chest wall and axillae: There is a right IJ chest wall port with tip at the superior cavoatrial junct ion. No axillary lymphadenopathy. Upper abdomen: Unremarkable. Bones: No acute osseous abnormality. Mild degenerative disc disease. There is a probable hemangioma i n the T8 vertebral body, unchanged. IMPRESSION: 1. Decreased but persistent ill-defined soft tissue at the left hilum with slightly decreased but pe rsistent material in the distal left mainstem bronchus and proximal upper and lower lobar bronchi. 2. Improved aeration of left upper and lower lobe airways and resolution of left lingular and lower lobe consolidation. Decreased but persistent tree-in-bud nodules throughout the left lung. 3. There are new patchy linear confluent opacities in the perihilar and suprahilar left upper lobe wi th some architectural distortion. This may be evolving treatment changes or malignancy. Recommend att ention on follow-up. 4. New irregular 1.4 cm nodule in the left apex and additional 5 mm nodule in the left apex, indeterm inate. Recommend attention on follow-up. 5. A previously seen 6 mm groundglass nodule in the posterior superior right upper lobe is no longer present. The other groundglass nodules in the right upper lobe are unchanged. Electronically signed by: Estephanie Mcgregor MD (09/27/2021 6:22 PM) [facility]
== END ==
LOC: CT 13:57
PROVIDERS: ATTEND Internal Medicine Hematology & Oncology
DX: C34.12 Malignant neoplasm of upper lobe, left bronchus or lung (principal); R91.8 Other nonspecific abnormal finding of lung field; J43.9 Emphysema, unspecified; F17.210 Nicotine dependence, cigarettes, uncomplicated; K44.9 Diaphragmatic hernia without obstruction or gangrene; M51.34 Other intervertebral disc degeneration, thoracic region
CPT/HCPCS: 71260; Q9967

== ENCOUNTER → 2021-09-27 | Outpatient (CLI) | payer MEDICARE, OTHER ==
[2021-03-26 11:55] VITALS: BP 114/59
[~2021-09-27] MED LIST changes: -IOHEXOL 300 MG/ML 100ML VIAL. IV ONE
--- NOTE | 2021-09-27 18:26 | RAD ---
EXAM: XR CHEST 2V 09/27/2021 2:44 PM CLINICAL INDICATION: Lung cancer, COPD COMPARISON: Chest radiograph 06/07/2021 TECHNIQUE: AP view of the chest FINDINGS: A right chest wall port with tip over the superior cavoatrial junction is unchanged. The h eart is normal in size. There is mild left lung volume loss. There is improved aeration of the left l meagan base. New left perihilar opacities. The right lung is clear. No pleural effusion or pneumothorax. IMPRESSION: 1. Improved aeration of the left lung base. 2. Left lung volume loss with new left perihilar opacities. 3. Please see dedicated CT of the chest from same day for detailed evaluation of the lungs. Electronically signed by: Estephanie Mcgregor MD (09/27/2021 6:23 PM) CHANTELLE
== END ==
LOC: RAD 13:55
PROVIDERS: ATTEND Internal Medicine Pulmonary Disease
DX: C34.90 Malignant neoplasm of unspecified part of unspecified bronchus or lung (principal); J44.9 Chronic obstructive pulmonary disease, unspecified
CPT/HCPCS: 71046

== ENCOUNTER → 2021-10-08 | Outpatient (CLI) | payer MEDICARE, OTHER ==
[2021-03-26 11:55] VITALS: BP 114/59
[2021-10-08 10:25] LABS: BASO % 0 % (0-3); EOS # 0.1 x10^3/uL (0.0-0.7); EOS % 2 % (0-3); HEMATOCRIT 32.5 % (39.0-53.0); HEMOGLOBIN 10.4 g/dL (13.0-17.5); LYMPH # 0.5 x10^3/uL (1.0-4.8); LYMPH % 9 % (24-48); MEAN CORPUSCULAR HEMOGLOBIN 26 pg (25-35); MEAN CORPUSCULAR HGB CONC 32 g/dL (31-37); MEAN CORPUSCULAR VOLUME 83 fL (79-100); MONO # 0.3 x10^3/uL (0.0-1.1); MONO % 6 % (0-9); NEUT # 4.7 x10^3/uL (1.8-7.7); NEUT % 83 % (31-73); PLATELET COUNT 461 x10^3/uL (140-400); RED BLOOD COUNT 3.93 x10^6/uL (4.30-5.70); RED CELL DISTRIBUTION WIDTH 17.6 % (11.5-14.5); WHITE BLOOD COUNT 5.7 x10^3/uL (4.0-11.0)
[2021-10-08 10:50] LABS: CALCIUM 7.9 mg/dL (8.5-10.1); CREATININE 1.1 mg/dL (0.7-1.3); GFR 82.6
[2021-10-08 10:57] LABS: ALBUMIN 2.5 g/dL (3.4-5.0); ALBUMIN/GLOBULIN RATIO 0.6 (1.0-1.7); MAGNESIUM 1.9 mg/dL (1.8-2.4); PHOSPHORUS 2.2 mg/dL (2.6-4.7); TOTAL BILIRUBIN 0.4 mg/dL (0.2-1.0); TOTAL PROTEIN 6.8 g/dL (6.4-8.2)
== END ==
LOC: ONCLAB 09:54
PROVIDERS: ATTEND Internal Medicine Hematology & Oncology
DX: C34.12 Malignant neoplasm of upper lobe, left bronchus or lung (principal)
CPT/HCPCS: 36415; 80053; 83735; 84100; 85025

== ENCOUNTER → 2021-10-14 | Outpatient (CLI) | payer MEDICARE, OTHER ==
[2021-03-26 11:55] VITALS: BP 114/59
[2021-10-14 11:00] LABS: CALCIUM 8.5 mg/dL (8.5-10.1); CREATININE 0.9 mg/dL (0.7-1.3); GFR 104.2; POTASSIUM 3.6 mmol/L (3.5-5.1)
[2021-10-14 11:07] LABS: ALBUMIN 2.5 g/dL (3.4-5.0); ALBUMIN/GLOBULIN RATIO 0.5 (1.0-1.7); PHOSPHORUS 2.8 mg/dL (2.6-4.7); TOTAL BILIRUBIN 0.3 mg/dL (0.2-1.0); TOTAL PROTEIN 7.4 g/dL (6.4-8.2)
== END ==
LOC: ONCLAB 10:07
PROVIDERS: ATTEND Internal Medicine Hematology & Oncology
DX: C34.12 Malignant neoplasm of upper lobe, left bronchus or lung (principal)
CPT/HCPCS: 36415; 80053; 84100

== ENCOUNTER → 2021-10-22 | Outpatient (CLI) | payer MEDICARE, OTHER ==
[2021-03-26 11:55] VITALS: BP 114/59
[2021-10-22 11:12] LABS: BASO % 1 % (0-3); EOS # 0.1 x10^3/uL (0.0-0.7); EOS % 1 % (0-3); HEMATOCRIT 30.9 % (39.0-53.0); HEMOGLOBIN 10.1 g/dL (13.0-17.5); LYMPH # 0.6 x10^3/uL (1.0-4.8); LYMPH % 12 % (24-48); MEAN CORPUSCULAR HEMOGLOBIN 27 pg (25-35); MEAN CORPUSCULAR HGB CONC 33 g/dL (31-37); MEAN CORPUSCULAR VOLUME 82 fL (79-100); MONO # 0.4 x10^3/uL (0.0-1.1); MONO % 8 % (0-9); NEUT # 3.8 x10^3/uL (1.8-7.7); NEUT % 79 % (31-73); PLATELET COUNT 481 x10^3/uL (140-400); RED BLOOD COUNT 3.79 x10^6/uL (4.30-5.70); RED CELL DISTRIBUTION WIDTH 17.2 % (11.5-14.5); WHITE BLOOD COUNT 4.8 x10^3/uL (4.0-11.0)
[2021-10-22 11:40] LABS: ALBUMIN 2.7 g/dL (3.4-5.0); ALBUMIN/GLOBULIN RATIO 0.6 (1.0-1.7); CALCIUM 7.6 mg/dL (8.5-10.1); GFR 92.2; PHOSPHORUS 2.5 mg/dL (2.6-4.7); TOTAL BILIRUBIN 0.3 mg/dL (0.2-1.0)
[2021-10-22 11:44] LABS: POTASSIUM 2.8 mmol/L (3.5-5.1)
== END ==
LOC: ONCLAB 10:35
PROVIDERS: ATTEND Internal Medicine Hematology & Oncology
DX: C34.12 Malignant neoplasm of upper lobe, left bronchus or lung (principal)
CPT/HCPCS: 36415; 80053; 84100; 85025

== ENCOUNTER → 2021-11-05 | Outpatient (CLI) | payer MEDICARE, OTHER ==
[2021-03-26 11:55] VITALS: BP 114/59
[2021-11-05 10:38] LABS: BASO % 0 % (0-3); EOS # 0.1 x10^3/uL (0.0-0.7); EOS % 1 % (0-3); HEMATOCRIT 31.5 % (39.0-53.0); LYMPH # 0.5 x10^3/uL (1.0-4.8); LYMPH % 9 % (24-48); MEAN CORPUSCULAR HEMOGLOBIN 27 pg (25-35); MEAN CORPUSCULAR HGB CONC 32 g/dL (31-37); MEAN CORPUSCULAR VOLUME 83 fL (79-100); MONO # 0.3 x10^3/uL (0.0-1.1); MONO % 5 % (0-9); NEUT # 4.8 x10^3/uL (1.8-7.7); NEUT % 85 % (31-73); PLATELET COUNT 503 x10^3/uL (140-400); RED BLOOD COUNT 3.78 x10^6/uL (4.30-5.70); RED CELL DISTRIBUTION WIDTH 16.6 % (11.5-14.5); WHITE BLOOD COUNT 5.6 x10^3/uL (4.0-11.0)
[2021-11-05 10:50] LABS: ALBUMIN 2.7 g/dL (3.4-5.0); ALBUMIN/GLOBULIN RATIO 0.7 (1.0-1.7); CALCIUM 8.8 mg/dL (8.5-10.1); CREATININE 1.1 mg/dL (0.7-1.3); GFR 82.6; TOTAL BILIRUBIN 0.6 mg/dL (0.2-1.0); TOTAL PROTEIN 6.6 g/dL (6.4-8.2)
[2021-11-05 11:04] LABS: POTASSIUM 2.9 mmol/L (3.5-5.1)
== END ==
LOC: ONCLAB 09:50
PROVIDERS: ATTEND Internal Medicine Hematology & Oncology
DX: C34.12 Malignant neoplasm of upper lobe, left bronchus or lung (principal)
CPT/HCPCS: 36415; 80053; 83735; 85025

== ENCOUNTER → 2021-11-12 | Outpatient (CLI) | payer MEDICARE, OTHER ==
[2021-03-26 11:55] VITALS: BP 114/59
[2021-11-12 10:28] LABS: BASO % 0 % (0-3); EOS # 0.2 x10^3/uL (0.0-0.7); EOS % 5 % (0-3); HEMATOCRIT 29.5 % (39.0-53.0); HEMOGLOBIN 9.4 g/dL (13.0-17.5); LYMPH # 0.8 x10^3/uL (1.0-4.8); LYMPH % 19 % (24-48); MEAN CORPUSCULAR HEMOGLOBIN 27 pg (25-35); MEAN CORPUSCULAR HGB CONC 32 g/dL (31-37); MEAN CORPUSCULAR VOLUME 85 fL (79-100); MONO # 0.5 x10^3/uL (0.0-1.1); MONO % 11 % (0-9); NEUT # 2.7 x10^3/uL (1.8-7.7); NEUT % 65 % (31-73); PLATELET COUNT 512 x10^3/uL (140-400); RED BLOOD COUNT 3.48 x10^6/uL (4.30-5.70); RED CELL DISTRIBUTION WIDTH 16.9 % (11.5-14.5); WHITE BLOOD COUNT 4.2 x10^3/uL (4.0-11.0)
[2021-11-12 10:30] LABS: CALCIUM 8.7 mg/dL (8.5-10.1); GFR 92.2; POTASSIUM 3.8 mmol/L (3.5-5.1)
[2021-11-12 10:36] LABS: ALBUMIN 2.6 g/dL (3.4-5.0); ALBUMIN/GLOBULIN RATIO 0.6 (1.0-1.7); MAGNESIUM 1.9 mg/dL (1.8-2.4); TOTAL BILIRUBIN 0.3 mg/dL (0.2-1.0); TOTAL PROTEIN 6.9 g/dL (6.4-8.2)
== END ==
LOC: ONCLAB 10:00
PROVIDERS: ATTEND Internal Medicine Hematology & Oncology
DX: C34.12 Malignant neoplasm of upper lobe, left bronchus or lung (principal)
CPT/HCPCS: 36415; 80053; 83735; 85025

== ENCOUNTER → 2021-11-19 | Outpatient (CLI) | payer MEDICARE, OTHER ==
[2021-03-26 11:55] VITALS: BP 114/59
[2021-11-19 11:03] LABS: BASO % 0 % (0-3); EOS # 0.3 x10^3/uL (0.0-0.7); EOS % 5 % (0-3); HEMATOCRIT 30.2 % (39.0-53.0); HEMOGLOBIN 9.6 g/dL (13.0-17.5); LYMPH % 20 % (24-48); MEAN CORPUSCULAR HEMOGLOBIN 27 pg (25-35); MEAN CORPUSCULAR HGB CONC 32 g/dL (31-37); MEAN CORPUSCULAR VOLUME 84 fL (79-100); MONO # 0.4 x10^3/uL (0.0-1.1); MONO % 9 % (0-9); NEUT # 3.3 x10^3/uL (1.8-7.7); NEUT % 66 % (31-73); PLATELET COUNT 548 x10^3/uL (140-400); RED BLOOD COUNT 3.61 x10^6/uL (4.30-5.70); RED CELL DISTRIBUTION WIDTH 16.7 % (11.5-14.5)
[2021-11-19 11:40] LABS: CALCIUM 9.2 mg/dL (8.5-10.1); CREATININE 0.9 mg/dL (0.7-1.3); GFR 104.2; POTASSIUM 4.3 mmol/L (3.5-5.1)
[2021-11-19 11:50] LABS: ALBUMIN 2.8 g/dL (3.4-5.0); ALBUMIN/GLOBULIN RATIO 0.6 (1.0-1.7); TOTAL BILIRUBIN 0.3 mg/dL (0.2-1.0); TOTAL PROTEIN 7.2 g/dL (6.4-8.2)
== END ==
LOC: ONCLAB 10:12
PROVIDERS: ATTEND Internal Medicine Hematology & Oncology
DX: C34.12 Malignant neoplasm of upper lobe, left bronchus or lung (principal)
CPT/HCPCS: 36415; 80053; 85025

== ENCOUNTER → 2021-12-03 | Outpatient (CLI) | payer MEDICARE, OTHER ==
[2021-03-26 11:55] VITALS: BP 114/59
[2021-12-03 10:42] LABS: CALCIUM 8.9 mg/dL (8.5-10.1); CREATININE 0.9 mg/dL (0.7-1.3); GFR 104.2; POTASSIUM 4.7 mmol/L (3.5-5.1)
[2021-12-03 10:47] LABS: ALBUMIN 2.8 g/dL (3.4-5.0); ALBUMIN/GLOBULIN RATIO 0.7 (1.0-1.7); TOTAL BILIRUBIN 0.4 mg/dL (0.2-1.0)
[2021-12-03 10:57] LABS: BASO % 0 % (0-3); EOS # 0.3 x10^3/uL (0.0-0.7); EOS % 5 % (0-3); HEMATOCRIT 30.7 % (39.0-53.0); HEMOGLOBIN 9.9 g/dL (13.0-17.5); LYMPH # 0.9 x10^3/uL (1.0-4.8); LYMPH % 19 % (24-48); MEAN CORPUSCULAR HEMOGLOBIN 28 pg (25-35); MEAN CORPUSCULAR HGB CONC 32 g/dL (31-37); MEAN CORPUSCULAR VOLUME 85 fL (79-100); MONO # 0.6 x10^3/uL (0.0-1.1); MONO % 13 % (0-9); NEUT # 3.1 x10^3/uL (1.8-7.7); NEUT % 63 % (31-73); PLATELET COUNT 418 x10^3/uL (140-400); RED BLOOD COUNT 3.59 x10^6/uL (4.30-5.70); RED CELL DISTRIBUTION WIDTH 17.6 % (11.5-14.5)
== END ==
LOC: ONCLAB 10:12
PROVIDERS: ATTEND Physician Assistant
DX: C34.12 Malignant neoplasm of upper lobe, left bronchus or lung (principal)
CPT/HCPCS: 36415; 80053; 85025

== ENCOUNTER → 2021-12-17 | Outpatient (CLI) | payer MEDICARE, OTHER ==
[2021-03-26 11:55] VITALS: BP 114/59
[2021-12-17 10:16] LABS: BASO % 0 % (0-3); EOS # 0.2 x10^3/uL (0.0-0.7); EOS % 5 % (0-3); HEMATOCRIT 30.9 % (39.0-53.0); HEMOGLOBIN 10.2 g/dL (13.0-17.5); LYMPH # 0.9 x10^3/uL (1.0-4.8); LYMPH % 19 % (24-48); MEAN CORPUSCULAR HEMOGLOBIN 28 pg (25-35); MEAN CORPUSCULAR HGB CONC 33 g/dL (31-37); MEAN CORPUSCULAR VOLUME 84 fL (79-100); MONO # 0.6 x10^3/uL (0.0-1.1); MONO % 12 % (0-9); NEUT % 64 % (31-73); PLATELET COUNT 453 x10^3/uL (140-400); RED BLOOD COUNT 3.66 x10^6/uL (4.30-5.70); RED CELL DISTRIBUTION WIDTH 17.3 % (11.5-14.5); WHITE BLOOD COUNT 4.7 x10^3/uL (4.0-11.0)
[2021-12-17 10:32] LABS: CREATININE 0.9 mg/dL (0.7-1.3); GFR 104.2; POTASSIUM 4.1 mmol/L (3.5-5.1)
[2021-12-17 10:36] LABS: ALBUMIN 2.7 g/dL (3.4-5.0); ALBUMIN/GLOBULIN RATIO 0.6 (1.0-1.7); TOTAL BILIRUBIN 0.4 mg/dL (0.2-1.0); TOTAL PROTEIN 7.1 g/dL (6.4-8.2)
== END ==
LOC: ONCLAB 09:53
PROVIDERS: ATTEND Physician Assistant
DX: C34.12 Malignant neoplasm of upper lobe, left bronchus or lung (principal)
CPT/HCPCS: 36415; 80053; 85025

== ENCOUNTER → 2021-12-23 | Outpatient (CLI) | payer MEDICARE, OTHER ==
[2021-03-26 11:55] VITALS: BP 114/59
--- NOTE | 2021-12-23 21:20 | RAD ---
Chest PA and lateral: Reason for examination: Lung cancer. Follow-up exam. Comparison is made to previous study dated 09/27/2021. Port-A-Cath is present on the right with the tip at the right atrium. No pneumothorax is seen. The he art size is normal. Mediastinum is unremarkable. Lung hargrove continue to show an opacity in the left upper lobe which appears to extend from the left hilum to the lateral pleural surface. This does not show significant interval change. No acute infiltrates or pleural effusions are seen. No acute bony a bnormalities are seen. Impression: Stable opacity in the left upper lobe extending from the left hilum to the pleural surface. No new infiltrates or pleural effusions evident. Electronically signed by: Paula Dickey MD (12/23/2021 9:18 PM) JOVAN
== END ==
LOC: RAD 15:47
PROVIDERS: ATTEND Internal Medicine Pulmonary Disease
DX: C34.90 Malignant neoplasm of unspecified part of unspecified bronchus or lung (principal); R91.8 Other nonspecific abnormal finding of lung field; Z95.0 Presence of cardiac pacemaker
CPT/HCPCS: 71046

== ENCOUNTER → 2022-01-07 | Outpatient (CLI) | payer MEDICARE, OTHER ==
[2021-03-26 11:55] VITALS: BP 114/59
[2022-01-07 10:40] LABS: BASO % 1 % (0-3); EOS # 0.2 x10^3/uL (0.0-0.7); EOS % 4 % (0-3); HEMOGLOBIN 10.2 g/dL (13.0-17.5); LYMPH # 1.1 x10^3/uL (1.0-4.8); LYMPH % 21 % (24-48); MEAN CORPUSCULAR HEMOGLOBIN 28 pg (25-35); MEAN CORPUSCULAR HGB CONC 33 g/dL (31-37); MEAN CORPUSCULAR VOLUME 85 fL (79-100); MONO # 0.5 x10^3/uL (0.0-1.1); MONO % 9 % (0-9); NEUT # 3.5 x10^3/uL (1.8-7.7); NEUT % 66 % (31-73); PLATELET COUNT 500 x10^3/uL (140-400); RED BLOOD COUNT 3.66 x10^6/uL (4.30-5.70); RED CELL DISTRIBUTION WIDTH 17.4 % (11.5-14.5); WHITE BLOOD COUNT 5.3 x10^3/uL (4.0-11.0)
[2022-01-07 10:55] LABS: CALCIUM 8.9 mg/dL (8.5-10.1); GFR 92.2; POTASSIUM 4.2 mmol/L (3.5-5.1)
[2022-01-07 11:00] LABS: ALBUMIN 2.8 g/dL (3.4-5.0); ALBUMIN/GLOBULIN RATIO 0.6 (1.0-1.7); TOTAL BILIRUBIN 0.4 mg/dL (0.2-1.0); TOTAL PROTEIN 7.3 g/dL (6.4-8.2)
== END ==
LOC: ONCLAB 10:20
PROVIDERS: ATTEND Internal Medicine Hematology & Oncology
DX: C34.12 Malignant neoplasm of upper lobe, left bronchus or lung (principal)
CPT/HCPCS: 36415; 80053; 85025

== ENCOUNTER → 2022-01-16 | Outpatient (CLI) | payer MEDICARE, OTHER ==
[2021-03-26 11:55] VITALS: BP 114/59
--- NOTE | 2022-01-16 14:06 | RAD ---
CT scan of the chest, abdomen and pelvis without contrast 01/16/2022 CLINICAL HISTORY: Lung cancer. TECHNIQUE: Unenhanced contiguous, 0.625 mm axial sections were obtained through the chest abdomen and pelvis. 5 mm reconstructed axial, sagittal and coronal images were obtained. One or more of the following individualized dose reduction techniques were utilized for this study: 1. Automated exposure control. 2. Adjustment of the mA and/or kV according to patient size. 3. Use of iterative reconstruction technique. FINDINGS: Comparison study is dated 09/27/2021. A right internal jugular [id number] type catheter is unchanged in position. Atherosclerotic calcif ication of the thoracic aorta and its branches is noted. The thoracic aorta is tortuous but tapers no rmally. The heart is normal in size. No hilar or mediastinal lymphadenopathy is seen. Diffuse wall th ickening of the distal thoracic esophagus is noted. Moderate bolus emphysematous changes are seen involving both upper lobes. A 4 mm nodular opacity is s een involving the left lung apex which has decreased in size as previous examination where measured 5 mm in greatest diameter. An additional masslike opacity is seen more inferiorly within the left uppe r lobe. This measures 1.3 cm in greatest diameter. This has decreased in size since the previous stud y where it measured 1.5 cm in greatest diameter. A nodular opacity is seen involving the right upper lobe which measures 1 cm in greatest diameter. This has not significantly changed. A wedge-shaped are a of atelectasis/ infiltrate is seen involving the left upper lobe. This hs not significantly changed since the previous examination.An area of probable scarring is seen involving the inferior right upp er lobe, unchanged. An irregular mass is seen involving the medial aspect of the left upper lobe which measures 1.4 x 1.2 x 1.1 cm in transverse, AP and craniocaudal dimensions. This has increased in size since the previou s study where it measured 0.6 x 0.5 x 0.5 cm. A 8mm nodule is seen involving the left lower lobe. Immediately lateral to this a 1.3 cm nodule is se en. These are new since the previous examination. No additional pulmonary nodule is noted. No pleural effusion or pneumothorax is seen. A 4.2 cm low-attenuation mass is seen involving medial segment of the left lobe of the liver consiste nt with a hepatic metastasis. This is new since the previous examination. The spleen, pancreas, adren al glands and kidneys are within normal limits. Atherosclerotic calcification abdominal aorta is seen. The abdominal aorta tapers normally. The gallb ladder is contracted. Air and stool are seen throughout the colon. There is no evidence of bowel obst ruction. No retroperitoneal lymphadenopathy is seen. Images through the pelvis demonstrate the urinary bladder distended with urine. No free fluid is seen . No pelvic or inguinal lymphadenopathy is noted. Degenerative changes are seen involving the thoraci c and throughout the lumbar spine along with both hips. Bilateral spondylolysis is seen at L5. Grade 1 spondylolisthesis of L5 in relation to S1 is noted. IMPRESSION: 1. 1.4 cm irregular mass is seen involving the medial aspect of the left upper lobe which has increas ed in size since the previous study. Two nodules are seen within the left lower lobe which measure 8 mm and 1.3 cm in size. They are new since the previous examination. These are consistent with lung me tastasis. 2. 4.2 cm low-attenuation mass is seen involving the liver consistent with a hepatic metastasis. This is new since the previous examination. Electronically signed by: Jose Rausch MD (01/16/2022 2:03 PM) [id number]
== END ==
LOC: CT 15:52
PROVIDERS: ATTEND Internal Medicine Hematology & Oncology
DX: C34.12 Malignant neoplasm of upper lobe, left bronchus or lung (principal); R91.8 Other nonspecific abnormal finding of lung field; I70.0 Atherosclerosis of aorta; K22.89 Other specified disease of esophagus; J43.9 Emphysema, unspecified; R16.0 Hepatomegaly, not elsewhere classified; M47.814 Spondylosis without myelopathy or radiculopathy, thoracic region; M47.816 Spondylosis without myelopathy or radiculopathy, lumbar region; M43.17 Spondylolisthesis, lumbosacral region; M16.0 Bilateral primary osteoarthritis of hip
CPT/HCPCS: 71250; 74176

== ENCOUNTER → 2022-01-21 | Outpatient (CLI) | payer MEDICARE, OTHER ==
[2021-03-26 11:55] VITALS: BP 114/59
[2022-01-21 11:08] LABS: BASO % 1 % (0-3); EOS # 0.4 x10^3/uL (0.0-0.7); EOS % 8 % (0-3); HEMOGLOBIN 11.3 g/dL (13.0-17.5); LYMPH # 1.2 x10^3/uL (1.0-4.8); LYMPH % 22 % (24-48); MEAN CORPUSCULAR HEMOGLOBIN 28 pg (25-35); MEAN CORPUSCULAR HGB CONC 33 g/dL (31-37); MEAN CORPUSCULAR VOLUME 84 fL (79-100); MONO # 0.5 x10^3/uL (0.0-1.1); MONO % 9 % (0-9); NEUT # 3.4 x10^3/uL (1.8-7.7); NEUT % 62 % (31-73); PLATELET COUNT 508 x10^3/uL (140-400); RED BLOOD COUNT 4.05 x10^6/uL (4.30-5.70); WHITE BLOOD COUNT 5.6 x10^3/uL (4.0-11.0)
[2022-01-21 11:18] LABS: CALCIUM 9.5 mg/dL (8.5-10.1); CREATININE 1.1 mg/dL (0.7-1.3); GFR 82.6; POTASSIUM 4.6 mmol/L (3.5-5.1)
[2022-01-21 11:24] LABS: ALBUMIN/GLOBULIN RATIO 0.6 (1.0-1.7); TOTAL BILIRUBIN 0.6 mg/dL (0.2-1.0); TOTAL PROTEIN 7.9 g/dL (6.4-8.2)
== END ==
LOC: ONCLAB 10:43
PROVIDERS: ATTEND Physician Assistant
DX: C34.12 Malignant neoplasm of upper lobe, left bronchus or lung (principal)
CPT/HCPCS: 36415; 80053; 85025